=== PATIENT | female | born 1935 | race Caucasian/White ===

== ENCOUNTER 2018-11-01 08:33 | Day surgery (SDC) | payer MEDICARE, BC ==
[2018-11-01] MEDS ORDERED: fentaNYL 100 MCG/2 ML SDV IV ONE (08:34)
[2018-11-01] MEDS ORDERED: Midazolam 1 MG/ML 2 ML SDV IV ONE (08:34)
[2018-11-01] MEDS ORDERED: Lactated Ringers 1,000 ML IV PRN (08:45)
[2018-11-01] MEDS ORDERED: Lactated Ringers 1,000 ML IV SCH (08:45)
[2018-11-01] MEDS ORDERED: Sodium Chloride 0.9% 10 ML Syringe FLUSH PRN (08:45)
--- NOTE | 2018-11-02 09:11 | OR ---
DATE OF OPERATION: 11/01/2018 SURGEON: Val Boone MD PREOPERATIVE DIAGNOSIS: Visually significant cataract, left eye. POSTOPERATIVE DIAGNOSIS: Visually significant cataract, left eye. PROCEDURES PERFORMED: Phacoemulsification with intraocular lens placement, left eye. ASSISTANTS: None. ANESTHESIA: Local with sedation. COMPLICATIONS: None. BLOOD LOSS: None. IMPLANTS: Donnie [id number], 20.5 diopter lens implanted. CDE: 10.59. DESCRIPTION OF PROCEDURE: After risks and benefits were reviewed with the patient, consent was obtained in the preoperative area, and the operative eye was marked with a surgical pen. In the preoperative area, a pledget was used to dilate the pupil consisting of a mixture of phenylephrine 10%, cyclopentolate 2%, moxifloxacin 0.5%, and bupivacaine 0.75%. The patient was taken to the operating room, where a time-out was performed, and the patient was placed under monitored anesthesia care. Topical tetracaine was used for anesthesia. The operative eye was prepped and draped for ophthalmic surgery, and the microscope was brought into position and focussed. A paracentesis incision was made, followed by injection of preservative-free 1% lidocaine into the anterior chamber, followed by injection of Viscoat into the anterior chamber. A microkeratome blade was used to make a corneal limbal incision temporarily. A cystotome was used to make the beginning of the capsulorrhexis, which was carried around 360 degrees in a curvilinear fashion using Utrata forceps. A Moore cannula with BSS was used to hydrodissect and hydrodelineate the nucleus. The nucleus was removed in a divide and conquer manner using phacoemulsification. Irrigation and aspiration were used to remove the remaining cortical material. Provisc was used to inflate the capsular bag, and a pre-loaded Donnie AU00T0 20.5 diopter lens, serial number [id number] was injected into the capsular bag. A Sinskey hook was used to position and center the lens. Next, irrigation and aspiration was used to remove any remaining viscoelastic and cortical material from the anterior chamber. BSS on a cannula was used to inflate the anterior chamber and hydrate the wound. The wound was checked and found to be watertight. 1 mg of Moxifloxacin was injected into the anterior chamber. Drapes were removed and the eye was cleaned. A drop of brimonidine 0.15% and a drop of TobraDex was placed. The eye was shielded, and the patient was taken to the recovery room in stable condition. /[id number] QUINN/LEVI CC: RITESH MI PA-C MTDD
[2018-11-02 10:48] VITALS: BP 168/73; PULSE 64
== END 2018-11-01 12:30 | disposition other institution (70) ==
LOC: FB.SDS 08:33
PROVIDERS: ATTEND Ophthalmology
DX: H25.13 Age-related nuclear cataract, bilateral (principal); I10 Essential (primary) hypertension; I48.0 Paroxysmal atrial fibrillation; E78.00 Pure hypercholesterolemia, unspecified; M19.90 Unspecified osteoarthritis, unspecified site; Z79.899 Other long term (current) drug therapy; Z79.01 Long term (current) use of anticoagulants
CPT/HCPCS: 00142; 66984; J2250; J3010; J7120; V2632

== ENCOUNTER 2018-11-29 07:09 | Day surgery (SDC) | payer MEDICARE, BC ==
[2018-11-29] MEDS ORDERED: fentaNYL 100 MCG/2 ML SDV IV ONE (07:10)
[2018-11-29] MEDS ORDERED: Ondansetron 4 MG/2 ML SDV IVPUSH ONE (07:10)
[2018-11-29] MEDS ORDERED: Sodium Chloride 0.9% 10 ML Syringe IV ONE (07:10)
[2018-11-29] MEDS ORDERED: Midazolam 1 MG/ML 2 ML SDV IV ONE (07:10)
[2018-11-29] MEDS: Sodium Chloride 0.9% 10 ML Syringe FLUSH PRN (07:50)
--- NOTE | 2018-11-29 11:34 | OR ---
DATE OF OPERATION: 11/29/2018 SURGEON: Val Boone MD PREOPERATIVE DIAGNOSIS: Visually significant cataract, right eye. POSTOPERATIVE DIAGNOSIS: Visually significant cataract, right eye. PROCEDURES PERFORMED: Phacoemulsification with intraocular lens placement, right eye. ASSISTANTS: None. ANESTHESIA: Local with sedation. COMPLICATIONS: None. BLOOD LOSS: None. IMPLANTS: Donnie [id number], 21.5 diopter lens implanted. CDE: 10.94. DESCRIPTION OF PROCEDURE: After risks and benefits were reviewed with the patient, consent was obtained in the preoperative area, and the operative eye was marked with a surgical pen. In the preoperative area, a pledget was used to dilate the pupil consisting of a mixture of phenylephrine 10%, cyclopentolate 2%, moxifloxacin 0.5%, and bupivacaine 0.75%. The patient was taken to the operating room, where a time-out was performed, and the patient was placed under monitored anesthesia care. Topical tetracaine was used for anesthesia. The operative eye was prepped and draped for ophthalmic surgery, and the microscope was brought into position and focussed. A paracentesis incision was made, followed by injection of preservative-free 1% lidocaine into the anterior chamber, followed by injection of Viscoat into the anterior chamber. A microkeratome blade was used to make a corneal limbal incision temporarily. A cystotome was used to make the beginning of the capsulorrhexis, which was carried around 360 degrees in a curvilinear fashion using Utrata forceps. A Moore cannula with BSS was used to hydrodissect and hydrodelineate the nucleus. The nucleus was removed in a divide and conquer manner using phacoemulsification. Irrigation and aspiration were used to remove the remaining cortical material. Provisc was used to inflate the capsular bag, and a pre-loaded Donnie AU00T0, 21.5 diopter lens, serial number [id number] was injected into the capsular bag. A Sinskey hook was used to position and center the lens. Next, irrigation and aspiration was used to remove any remaining viscoelastic and cortical material from the anterior chamber. BSS on a cannula was used to inflate the anterior chamber and hydrate the wound. The wound was checked and found to be watertight. 1 mg of Moxifloxacin was injected into the anterior chamber. Drapes were removed and the eye was cleaned. A drop of brimonidine 0.15% and a drop of TobraDex was placed. The eye was shielded, and the patient was taken to the recovery room in stable condition. /[id number] AK/MODL CC: RITESH MI MD MTDD
[2018-11-29 15:50] VITALS: BP 135/60; PULSE 56
== END 2018-11-29 10:15 | disposition home or self-care (01) ==
LOC: FB.SDS 07:09
PROVIDERS: ATTEND Ophthalmology
DX: H25.13 Age-related nuclear cataract, bilateral (principal); I10 Essential (primary) hypertension; I48.0 Paroxysmal atrial fibrillation; E78.00 Pure hypercholesterolemia, unspecified; M19.90 Unspecified osteoarthritis, unspecified site; Z79.01 Long term (current) use of anticoagulants; Z79.899 Other long term (current) drug therapy
CPT/HCPCS: 66984; J2250; J2405; J3010; V2632

== ENCOUNTER 2019-10-05 06:29 | Emergency (ER) | payer MEDICARE, BC ==
--- NOTE | 2019-10-05 06:56 | EDM.PDOC ---
ED HPI GENERAL MEDICAL PROBLEM - General Chief Complaint: General Stated Complaint: ABDOMINAL/BACK PAIN Time Seen by Provider: 10/05/19 06:40 Source of Information: Reports: Patient History Limitations: Reports: No Limitations - History of Present Illness INITIAL COMMENTS - FREE TEXT/NARRATIVE: Patient presented to the ED because of pain which run across her right pelvis to the left side of the abdomen. She was diagnosed with shingles recently and is taking gabapentin and tramadol,however, iyt's not helping much with he pain. Right Lower Abdomen Pain Score (Numeric/FACES): 7 - Related Data Allergies Allergy/AdvReac Type Severity Reaction Status Date / Time No Known Allergies Allergy Verified 10/05/19 06:37 Home Meds: Home Meds Multivitamin [One Daily Multivitamin] 1 each PO DAILY 01/09/16 [History] Omeprazole 20 mg PO DAILY 09/05/17 [History] Oxybutynin Chloride 5 mg PO BID 09/05/17 [History] Apixaban [Eliquis] 5 mg PO BID 10/26/18 [History] Sennosides [Senokot] 8.6 mg PO DAILY 10/26/18 [History] dilTIAZem HCL [Cardizem Cd] 180 mg PO BEDTIME 10/26/18 [History] Acetaminophen [Tylenol Extra Strength] 500 mg PO TID 10/05/19 [History] Bumetanide [Bumex] 0.5 mg PO DAILY 10/05/19 [History] Gabapentin [Neurontin] 100 mg PO TID 10/05/19 [History] atorvaSTATin [Lipitor] 40 mg PO DAILY 10/05/19 [History] traMADol [Ultram] 50 mg PO TID PRN 10/05/19 [History] Past Medical History HEENT History: Reports: Cataract, Glaucoma, Impaired Vision Other HEENT History: 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 MACULAR DEGENERATION Cardiovascular History: Reports: Afib, High Cholesterol, Hypertension Gastrointestinal History: Reports: Colon Polyp, Other (See Below) Other Gastrointestinal History: dysphagia. MALIGNANT NEOPLASM OF HEPATIC FLEXURE Genitourinary History: Reports: Urinary Incontinence [employer] History: Reports: Musculoskeletal History: Reports: Arthritis, Fracture Other Musculoskeletal History: fx L ankle, fx R wrist, falls. WEAKNESS. CERVICAL STENOSIS,. CHRONIC NECK PAIN, SPONDYALISTHESIS OF CERVICAL CANAL Neurological History: Reports: TIA, Vertigo Psychiatric History: Reports: Dementia, Depression Other Psychiatric History: ALTERED MENTAL STATUS Endocrine/Metabolic History: Reports: Obesity/BMI 30+ Oncologic (Cancer) History: Reports: Colon Dermatologic History: Reports: None - Infectious Disease History Infectious Disease History: Reports: Shingles - Past Surgical History GI Surgical History: Reports: Appendectomy, Colon, Colonoscopy Neurological Surgical History: Reports: None Musculoskeletal Surgical History: Reports: None Social & Family History - Family History Family Medical History: Noncontributory - Tobacco Use Smoking Status *Q: Never Smoker - Caffeine Use Caffeine Use: Reports: None - Recreational Drug Use Recreational Drug Use: No ED ROS GENERAL - Review of Systems Review Of Systems: See Below Constitutional: Reports: No Symptoms HEENT: Reports: No Symptoms Respiratory: Reports: No Symptoms Cardiovascular: Reports: No Symptoms Endocrine: Reports: No Symptoms GI/Abdominal: Reports: No Symptoms : Reports: Hematuria Musculoskeletal: Reports: No Symptoms Skin: Reports: Rash ED EXAM, GENERAL - Physical Exam Exam: See Below Exam Limited By: No Limitations General Appearance: Alert, No Apparent Distress Nose: Normal Inspection, Normal Mucosa Throat/Mouth: Normal Inspection, Normal Lips, Normal Teeth Head: Atraumatic, Normocephalic Neck: Normal Inspection, Supple, Non-Tender, Full Range of Motion Respiratory/Chest: No Respiratory Distress, Lungs Clear, Normal Breath Sounds Cardiovascular: Normal Peripheral Pulses, Regular Rate, Rhythm, No Edema, No Gallop GI/Abdominal: Normal Bowel Sounds, Soft, Non-Tender, No Organomegaly (Female) Exam: Normal External Exam Extremities: Normal Inspection, Normal Range of Motion Skin Exam: Warm, Zoster-Like Rash Course - Vital Signs Text/Narrative:: Tramadol 100 mg po x1 Tylenol 1000 mg po x1 Last Recorded V/S: Last Vital Signs Temp 36.5 C 10/05/19 06:37 Pulse 52 L 10/05/19 07:36 Resp 16 10/05/19 07:36 BP 169/49 H 10/05/19 07:36 Pulse Ox 100 10/05/19 07:36 - Orders/Labs/Meds Meds: Medications Discontinued Medications Generic Name Dose Route Start Last Admin Trade Name Freq PRN Reason Stop Dose Admin Acetaminophen 1,000 mg 10/05/19 06:58 10/05/19 07:10 Tylenol Extra Strength PO 10/05/19 06:59 1,000 mg ONETIME ONE Administration Tramadol HCl 100 mg 10/05/19 06:58 10/05/19 07:10 Ultram PO 10/05/19 06:59 100 mg ONETIME ONE Administration Departure - Departure Time of Disposition: 06:55 Disposition: Home, Self-Care 01 Condition: Good Clinical Impression: Herpes zoster - Discharge Information Instructions: Shingles, [id number] Referrals: Ever Pro MD [Primary Care Provider] - Forms: ED Department Discharge Additional Instructions: Please read discharge instructions on herpes zoster Continue gabapentin as prescribed Increase tramadol from 50 mg to 100 mg taken with tylenol 1000 mg every 8 hours as needed for pain Sepsis Event Note (ED) - Evaluation Sepsis Screening Result: No Definite Risk
[2019-10-05] MEDS ORDERED: Acetaminophen 500 MG Tab PO ONE (06:58)
[2019-10-05] MEDS ORDERED: traMADol 50 MG Tab PO ONE (06:58)
[2019-10-05 07:37] VITALS: BP 169/49; PULSE 52
== END 2019-10-05 08:03 | disposition home or self-care (01) ==
LOC: FB.ED 06:29
DX: B02.9 Zoster without complications (principal); I48.91 Unspecified atrial fibrillation; E78.00 Pure hypercholesterolemia, unspecified; I10 Essential (primary) hypertension; F03.90 Unspecified dementia, unspecified severity, without behavioral disturbance, psychotic disturbance, mood disturbance, and anxiety; Z86.73 Personal history of transient ischemic attack (TIA), and cerebral infarction without residual deficits; E66.9 Obesity, unspecified; Z68.31 Body mass index [BMI] 31.0-31.9, adult; Z79.01 Long term (current) use of anticoagulants; Z79.899 Other long term (current) drug therapy
CPT/HCPCS: 99284; A9270; 99283

== ENCOUNTER 2020-03-06 20:15 | Inpatient (IN) | payer MEDICARE, BC ==
[2020-03-06] MEDS ORDERED: Ondansetron 4 MG Tab.DIS PO ONE (20:38)
[2020-03-06] MEDS ORDERED: Meclizine 25 MG Tab PO ONE (20:38)
--- NOTE | 2020-03-06 21:07 | EDM.PDOC ---
ED HPI GENERAL MEDICAL PROBLEM - General Chief Complaint: General Stated Complaint: FALL AT HOME Time Seen by Provider: 03/06/20 20:30 Source of Information: Reports: Patient History Limitations: Reports: No Limitations - History of Present Illness INITIAL COMMENTS - FREE TEXT/NARRATIVE: Patient presented to the ED via EMS because of a fall. [facility] staff found her on he floor. She doesn't know how she end up on the floor. She doesn't complain of any pain but has nausea w/o vomiting and dizziness. She said her dizziness is nothing new but is worse today. - Related Data Allergies Allergy/AdvReac Type Severity Reaction Status Date / Time No Known Allergies Allergy Verified 03/06/20 20:35 Home Meds: Home Meds Multivitamin [One Daily Multivitamin] 1 each PO DAILY 01/09/16 [History] Oxybutynin Chloride 5 mg PO BID 09/05/17 [History] Apixaban [Eliquis] 5 mg PO BID 10/26/18 [History] Sennosides [Senokot] 8.6 mg PO DAILY 10/26/18 [History] dilTIAZem HCL [Cardizem Cd] 180 mg PO BEDTIME 10/26/18 [History] Bumetanide [Bumex] 0.5 mg PO DAILY 10/05/19 [History] atorvaSTATin [Lipitor] 40 mg PO DAILY 10/05/19 [History] traMADol [Ultram] 50 mg PO TID PRN 10/05/19 [History] Meclizine [Antivert] 25 mg PO Q6H PRN #30 tab 03/06/20 [Rx] Omeprazole Magnesium [Prilosec Otc] 20 mg PO DAILY 03/06/20 [History] Past Medical History HEENT History: Reports: Cataract, Glaucoma, Impaired Vision Other HEENT History: 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 MACULAR DEGENERATION Cardiovascular History: Reports: Afib, High Cholesterol, Hypertension Gastrointestinal History: Reports: Colon Polyp, Other (See Below) Other Gastrointestinal History: dysphagia. 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 WEAKNESS. CERVICAL STENOSIS,. CHRONIC NECK PAIN, SPONDYALISTHESIS OF CERVICAL CANAL Neurological History: Reports: TIA, Vertigo Psychiatric History: Reports: Dementia, Depression Other Psychiatric History: ALTERED MENTAL STATUS Endocrine/Metabolic History: Reports: Obesity/BMI 30+ Oncologic (Cancer) History: Reports: Colon Dermatologic History: Reports: None - Infectious Disease History Infectious Disease History: Reports: Shingles - Past Surgical History GI Surgical History: Reports: Appendectomy, Colon, Colonoscopy Neurological Surgical History: Reports: None Musculoskeletal Surgical History: Reports: None Social & Family History - Family History Family Medical History: No Pertinent Family History - Tobacco Use Tobacco Use Status *Q: Never Tobacco User - Caffeine Use Caffeine Use: Reports: None - Recreational Drug Use Recreational Drug Use: No ED ROS GENERAL - Review of Systems Review Of Systems: See Below Constitutional: Reports: No Symptoms HEENT: Reports: No Symptoms Respiratory: Reports: No Symptoms Cardiovascular: Reports: No Symptoms Endocrine: Reports: No Symptoms GI/Abdominal: Reports: Nausea : Reports: No Symptoms Musculoskeletal: Reports: No Symptoms Skin: Reports: No Symptoms Neurological: Reports: Dizziness Psychiatric: Reports: No Symptoms ED EXAM, GENERAL - Physical Exam Exam: See Below Exam Limited By: No Limitations General Appearance: Alert, No Apparent Distress Ears: Normal External Exam, Normal Canal Nose: Normal Inspection, Normal Mucosa, No Blood Throat/Mouth: Normal Inspection, Normal Lips, Normal Teeth Head: Atraumatic, Normocephalic Neck: Normal Inspection, Supple, Non-Tender, Full Range of Motion Respiratory/Chest: No Respiratory Distress, Lungs Clear, Normal Breath Sounds Cardiovascular: Normal Peripheral Pulses, Regular Rate, Rhythm, No Edema GI/Abdominal: Normal Bowel Sounds, Soft, Non-Tender, No Organomegaly Back Exam: Normal Inspection, Full Range of Motion Extremities: Normal Inspection, Normal Range of Motion, Non-Tender Neurological: Alert, Oriented, CN II-XII Intact, Normal Cognition, Normal Gait, Normal Reflexes, No Motor/Sensory Deficits Course - Vital Signs Text/Narrative:: Labs/EKG/CXR result was discussed with patient UC-pending Zofran 4 mg ODT Meclizine 25 mg po x1 Last Recorded V/S: Last Vital Signs Temp 36.6 C 03/06/20 20:15 Pulse 88 03/06/20 20:15 Resp 18 03/06/20 20:15 BP 165/67 H 03/06/20 20:15 Pulse Ox 96 03/06/20 20:15 - Orders/Labs/Meds Orders: Active Orders 24 hr Category Date Time Status Patient Status [ADT] Routine ADT 03/06/20 21:53 Ordered Antiembolic Devices [RC] .Routine Care 03/06/20 21:53 Ordered Cardiac Monitoring [RC] INTERMITTENT Care 03/06/20 21:57 Ordered EKG Documentation Completion [RC] ASDIRECTED Care 03/06/20 20:38 Active Intake and Output [RC] QSHIFT Care 03/06/20 21:57 Ordered Oxygen Therapy [RC] PRN Care 03/06/20 21:53 Ordered Pulse Oximetry [RC] PRN Care 03/06/20 21:58 Ordered Up With Assistance [RC] ASDIRECTED Care 03/06/20 21:53 Ordered VTE/DVT Education [RC] Per Unit Routine Care 03/06/20 21:53 Ordered Vital Signs [RC] Q4H Care 03/06/20 21:53 Ordered Heart Healthy Diet [DIET] Diet 03/07/20 Breakfast Ordered Chest 1V Frontal [CR] Stat Exams 03/06/20 20:48 Taken BASIC METABOLIC PANEL,BMP [CHEM] AM Lab 03/07/20 05:11 Ordered CORONAVIRUS COVID-19 JORGE [MOLEC] Stat Lab 03/06/20 21:52 Ordered CULTURE URINE [RM] Stat Lab 03/06/20 19:58 Received Apixaban [Eliquis] Med 03/07/20 09:00 Ordered 5 mg PO BID Bumetanide [Bumex] Med 03/07/20 09:00 Ordered 0.5 mg PO DAILY Diltiazem [Cardizem CD] Med 03/07/20 21:00 Ordered 180 mg PO BEDTIME Meclizine [Antivert] Med 03/06/20 21:53 Ordered 25 mg PO Q6H PRN Multivitamin [One Daily Multivitamin] Med 03/07/20 09:00 Ordered 1 each PO DAILY Omeprazole Magnesium [Prilosec Otc] Med 03/07/20 09:00 Ordered 20 mg PO DAILY Ondansetron [Zofran] Med 03/06/20 21:53 Ordered 4 mg IVPUSH Q4H PRN Oxybutynin Med 03/07/20 09:00 Ordered 5 mg PO BID Sennosides [Senna] Med 03/07/20 09:00 Ordered 8.6 mg PO DAILY Sodium Chloride 0.9% with KCl 20 mEq @ 100 mL/Hr (1000 Med 03/06/20 22:00 Ordered mL) NS + KCl 20mEq/L [Normal Saline with 20 mEq KCl] 1,000 ml IV ASDIRECTED Sulfamethoxazole/Trimethoprim [Septra DS] Med 03/06/20 22:15 Ordered 1 tab PO BID atorvaSTATin [Lipitor] Med 03/07/20 09:00 Ordered 40 mg PO DAILY traMADol [Ultram] Med 03/06/20 22:03 Ordered 50 mg PO TID PRN Sequential Compression Device [OM.PC] Per Unit Routine Oth 03/06/20 21:58 Ordered Resuscitation Status Routine Resus Stat 03/06/20 21:53 Ordered EKG 12 Lead [EK] Routine Ther 03/06/20 20:37 Ordered Medication Orders Apixaban (Eliquis) 5 mg PO BID [facility] Atorvastatin Calcium (Lipitor) 40 mg PO DAILY [facility] Bumetanide (Bumex) 0.5 mg PO DAILY [facility] Diltiazem HCl (Cardizem Cd) 180 mg PO BEDTIME [facility] Potassium Chloride/Sodium Chloride (Normal Saline With 20 Meq Kcl) 1,000 mls @ 100 mls/hr IV ASDIRECTED [facility] Meclizine HCl (Antivert) 25 mg PO Q6H PRN PRN Reason: vertigo Non-Formulary Medication (Multivitamin [One Daily Multivitamin]) 1 each PO DAILY [facility] Non-Formulary Medication (Omeprazole Magnesium [Prilosec Otc]) 20 mg PO DAILY [facility] Ondansetron HCl (Zofran) 4 mg IVPUSH Q4H PRN PRN Reason: Nausea/Vomiting Oxybutynin Chloride (Oxybutynin) 5 mg PO BID [facility] Senna (Senna) 8.6 mg PO DAILY [facility] Tramadol HCl (Ultram) 50 mg PO TID PRN PRN Reason: Pain Trimethoprim/Sulfamethoxazole (Septra Ds) 1 tab PO BID [facility] Labs: Laboratory Tests 03/06/20 03/06/20 03/06/20 Range/Units 19:58 20:55 20:55 WBC 8.2 (3.0-10.3) x10-3/uL RBC 4.33 (3.60-5.20) x10(6)uL Hgb 13.3 (11.4-15.5) g/dL Hct 40.1 (34.2-48.2) % MCV 92.5 (76.7-100.5) fL MCH 30.7 (23.9-33.9) pg MCHC 33.2 (31.9-34.8) g/dL RDW 12.6 (12.3-16.5) % Plt Count 177 (151-488) x10(3)uL MPV 8.6 (7.1-12.4) fL Neut % (Auto) 81.8 H (30.8-76.2) % Lymph % (Auto) 9.4 L (18.4-52.1) % [place] % (Auto) 8.3 (4.4-15.7) % Eos % (Auto) 0.4 L (0.6-8.1) % Baso % (Auto) 0.1 L (0.2-1.5) % Neut # (Auto) 6.7 H (1.5-6.3) x10-3/uL Lymph # (Auto) 0.8 L (1.0-4.4) x10-3/uL [place] # (Auto) 0.7 (0.3-1.0) x10-3/uL Eos # (Auto) 0.0 (0.0-0.8) x10-3/uL Baso # (Auto) 0.0 (0.0-0.1) x10-3/uL Sodium 142 (135-145) mmol/L Potassium 3.3 L (3.5-5.3) mmol/L Chloride 101 (100-110) mmol/L Carbon Dioxide 28 (21-32) mmol/L BUN 15 (7-18) mg/dL Creatinine 1.2 H (0.55-1.02) mg/dL Est Cr Clr Drug Dosing 27.60 mL/min Estimated GFR (MDRD) 43 L (>60) BUN/Creatinine Ratio 12.5 (9-20) Glucose 150 H (80-116) mg/dL Calcium 9.4 (8.6-10.2) mg/dL Total Bilirubin 0.4 (0.1-1.3) mg/dL AST 24 (5-25) IU/L ALT 25 (12-36) U/L Alkaline Phosphatase 93 (56-112) IU/L Creatine Kinase (60-160) IU/L Troponin I (4.0-60.3) pg/mL Total Protein 6.8 (6.0-8.0) g/dL Albumin 3.8 (3.2-4.6) g/dL Globulin 3.0 g/dL Albumin/Globulin Ratio 1.3 Urine Color Yellow (YELLOW) Urine Appearance Clear (CLEAR) Urine pH 5.0 (5.0-6.5) Ur Specific [place] 1.020 (1.010-1.025) Urine Protein Negative (NEGATIVE) mg/dL Urine Glucose (UA) Normal (NORMAL) mg/dL Urine Ketones Negative (NEGATIVE) mg/dL Urine Occult Blood Negative (NEGATIVE) Urine Nitrite Negative (NEGATIVE) Urine Bilirubin Negative (NEGATIVE) Urine Urobilinogen Normal (NEGATIVE) mg/dL Ur Leukocyte Esterase Small H (NEGATIVE) Urine RBC 0-5 (0-5) Urine WBC 0-5 (0-5) Ur Squamous Epith Cells Occasional (NS,R,O) Urine Bacteria Few H (NS) 03/06/20 03/06/20 Range/Units 20:55 20:55 WBC (3.0-10.3) x10-3/uL RBC (3.60-5.20) x10(6)uL Hgb (11.4-15.5) g/dL Hct (34.2-48.2) % MCV (76.7-100.5) fL MCH (23.9-33.9) pg MCHC (31.9-34.8) g/dL RDW (12.3-16.5) % Plt Count (151-488) x10(3)uL MPV (7.1-12.4) fL Neut % (Auto) (30.8-76.2) % Lymph % (Auto) (18.4-52.1) % [place] % (Auto) (4.4-15.7) % Eos % (Auto) (0.6-8.1) % Baso % (Auto) (0.2-1.5) % Neut # (Auto) (1.5-6.3) x10-3/uL Lymph # (Auto) (1.0-4.4) x10-3/uL [place] # (Auto) (0.3-1.0) x10-3/uL Eos # (Auto) (0.0-0.8) x10-3/uL Baso # (Auto) (0.0-0.1) x10-3/uL Sodium (135-145) mmol/L Potassium (3.5-5.3) mmol/L Chloride (100-110) mmol/L Carbon Dioxide (21-32) mmol/L BUN (7-18) mg/dL Creatinine (0.55-1.02) mg/dL Est Cr Clr Drug Dosing mL/min Estimated GFR (MDRD) (>60) BUN/Creatinine Ratio (9-20) Glucose (80-116) mg/dL Calcium (8.6-10.2) mg/dL Total Bilirubin (0.1-1.3) mg/dL AST (5-25) IU/L ALT (12-36) U/L Alkaline Phosphatase (56-112) IU/L Creatine Kinase 78 (60-160) IU/L Troponin I 11.7 (4.0-60.3) pg/mL Total Protein (6.0-8.0) g/dL Albumin (3.2-4.6) g/dL Globulin g/dL Albumin/Globulin Ratio Urine Color (YELLOW) Urine Appearance (CLEAR) Urine pH (5.0-6.5) Ur Specific [place] (1.010-1.025) Urine Protein (NEGATIVE) mg/dL Urine Glucose (UA) (NORMAL) mg/dL Urine Ketones (NEGATIVE) mg/dL Urine Occult Blood (NEGATIVE) Urine Nitrite (NEGATIVE) Urine Bilirubin (NEGATIVE) Urine Urobilinogen (NEGATIVE) mg/dL Ur Leukocyte Esterase (NEGATIVE) Urine RBC (0-5) Urine WBC (0-5) Ur Squamous Epith Cells (NS,R,O) Urine Bacteria (NS) Meds: Medications Generic Name Dose Route Start Last Admin Trade Name Freq PRN Reason Stop Dose Admin Apixaban 5 mg 03/07/20 09:00 Eliquis PO BID [facility] Atorvastatin Calcium 40 mg 03/07/20 09:00 Lipitor PO DAILY [facility] Bumetanide 0.5 mg 03/07/20 09:00 Bumex PO DAILY [facility] Diltiazem HCl 180 mg 03/07/20 21:00 Cardizem Cd PO BEDTIME [facility] Potassium Chloride/Sodium Chloride 1,000 mls @ 100 mls/hr 03/06/20 22:00 Normal Saline With 20 Meq Kcl IV ASDIRECTED [facility] Meclizine HCl 25 mg 03/06/20 21:53 Antivert PO Q6H PRN vertigo Non-Formulary Medication 1 each 03/07/20 09:00 Multivitamin [One Daily Multivitamin] PO DAILY [facility] Non-Formulary Medication 20 mg 03/07/20 09:00 Omeprazole Magnesium [Prilosec Otc] PO DAILY [facility] Ondansetron HCl 4 mg 03/06/20 21:53 Zofran IVPUSH Q4H PRN Nausea/Vomiting Oxybutynin Chloride 5 mg 03/07/20 09:00 Oxybutynin PO BID [facility] Senna 8.6 mg 03/07/20 09:00 Senna PO DAILY [facility] Tramadol HCl 50 mg 03/06/20 22:03 Ultram PO TID PRN Pain Trimethoprim/Sulfamethoxazole 1 tab 03/06/20 22:15 Septra Ds PO BID [facility] Discontinued Medications Generic Name Dose Route Start Last Admin Trade Name Freq PRN Reason Stop Dose Admin Meclizine HCl 25 mg 03/06/20 20:38 03/06/20 20:51 Antivert PO 03/06/20 20:39 25 mg ONETIME ONE Administration Ondansetron HCl 4 mg 03/06/20 20:38 03/06/20 20:43 Zofran Odt PO 03/06/20 20:39 4 mg ONETIME ONE Administration Departure - Departure Time of Disposition: 21:45 Disposition: Refer to Observation Condition: Good Clinical Impression: UTI (urinary tract infection), Chronic vertigo, Hypokalemia - Discharge Information Prescriptions: Meclizine [Antivert] 25 mg PO Q6H PRN #30 tab PRN Reason: vertigo Referrals: Ever Pro MD [Primary Care Provider] - Additional Instructions: Please read discharge instructions on UTI and chronic vertigo Increase oral fluids Meclizine 25 mg every 6 hours as needed for vertigo Bactrim DS twice daily for 3 days Follow up as needed Sepsis Event Note (ED) - Evaluation Sepsis Screening Result: No Definite Risk - Focused Exam Vital Signs: Vital Signs Temp Pulse Resp BP Pulse Ox 03/06/20 20:15 36.6 C 88 18 165/67 H 96 - My Orders Last 24 Hours: My Active Orders 03/06/20 19:58 CULTURE URINE [RM] Stat 03/06/20 20:37 EKG 12 Lead [EK] Routine 03/06/20 20:38 EKG Documentation Completion [RC] ASDIRECTED 03/06/20 20:48 Chest 1V Frontal [CR] Stat 03/06/20 21:52 CORONAVIRUS COVID-19 [facility]OR[facility] [MOLEC] Stat 03/06/20 21:53 Patient Status [ADT] Routine Antiembolic Devices [RC] .Routine Oxygen Therapy [RC] PRN Up With Assistance [RC] ASDIRECTED VTE/DVT Education [RC] Per Unit Routine Vital Signs [RC] Q4H Meclizine [Antivert] 25 mg PO Q6H PRN Ondansetron [Zofran] 4 mg IVPUSH Q4H PRN Resuscitation Status Routine 03/06/20 21:57 Cardiac Monitoring [RC] INTERMITTENT Intake and Output [RC] QSHIFT 03/06/20 21:58 Pulse Oximetry [RC] PRN Sequential Compression Device [OM.PC] Per Unit Routine 03/06/20 22:00 Sodium Chloride 0.9% with KCl 20 mEq @ 100 mL/Hr (1000 mL) NS + KCl 20mEq/L [Normal Saline with 20 mEq KCl] 1,000 ml IV ASDIRECTED 03/06/20 22:03 traMADol [Ultram] 50 mg PO TID PRN 03/06/20 22:15 Sulfamethoxazole/Trimethoprim [Septra DS] 1 tab PO BID 03/07/20 05:11 BASIC METABOLIC PANEL,BMP [CHEM] AM 03/07/20 Breakfast Heart Healthy Diet [DIET] 03/07/20 09:00 Apixaban [Eliquis] 5 mg PO BID Bumetanide [Bumex] 0.5 mg PO DAILY Multivitamin [One Daily Multivitamin] 1 each PO DAILY Omeprazole Magnesium [Prilosec Otc] 20 mg PO DAILY Oxybutynin 5 mg PO BID Sennosides [Senna] 8.6 mg PO DAILY atorvaSTATin [Lipitor] 40 mg PO DAILY 03/07/20 21:00 Diltiazem [Cardizem CD] 180 mg PO BEDTIME - Assessment/Plan Last 24 Hours: My Active Orders 03/06/20 19:58 CULTURE URINE [RM] Stat 03/06/20 20:37 EKG 12 Lead [EK] Routine 03/06/20 20:38 EKG Documentation Completion [RC] ASDIRECTED 03/06/20 20:48 Chest 1V Frontal [CR] Stat 03/06/20 21:52 CORONAVIRUS COVID-19 JORGE [MOLEC] Stat 03/06/20 21:53 Patient Status [ADT] Routine Antiembolic Devices [RC] .Routine Oxygen Therapy [RC] PRN Up With Assistance [RC] ASDIRECTED VTE/DVT Education [RC] Per Unit Routine Vital Signs [RC] Q4H Meclizine [Antivert] 25 mg PO Q6H PRN Ondansetron [Zofran] 4 mg IVPUSH Q4H PRN Resuscitation Status Routine 03/06/20 21:57 Cardiac Monitoring [RC] INTERMITTENT Intake and Output [RC] QSHIFT 03/06/20 21:58 Pulse Oximetry [RC] PRN Sequential Compression Device [OM.PC] Per Unit Routine 03/06/20 22:00 Sodium Chloride 0.9% with KCl 20 mEq @ 100 mL/Hr (1000 mL) NS + KCl 20mEq/L [Normal Saline with 20 mEq KCl] 1,000 ml IV ASDIRECTED 03/06/20 22:03 traMADol [Ultram] 50 mg PO TID PRN 03/06/20 22:15 Sulfamethoxazole/Trimethoprim [Septra DS] 1 tab PO BID 03/07/20 05:11 BASIC METABOLIC PANEL,BMP [CHEM] AM 03/07/20 Breakfast Heart Healthy Diet [DIET] 03/07/20 09:00 Apixaban [Eliquis] 5 mg PO BID Bumetanide [Bumex] 0.5 mg PO DAILY Multivitamin [One Daily Multivitamin] 1 each PO DAILY Omeprazole Magnesium [Prilosec Otc] 20 mg PO DAILY Oxybutynin 5 mg PO BID Sennosides [Senna] 8.6 mg PO DAILY atorvaSTATin [Lipitor] 40 mg PO DAILY 03/07/20 21:00 Diltiazem [Cardizem CD] 180 mg PO BEDTIME
[2020-03-06] MEDS ORDERED: Ondansetron 4 MG/2 ML SDV IVPUSH PRN (21:53)
[2020-03-06] MEDS ORDERED: Meclizine 25 MG Tab PO PRN (21:53)
[2020-03-06] MEDS ORDERED: NS + KCl 20mEq/L 1,000 ML IV SCH (22:00)
[2020-03-06] MEDS ORDERED: traMADol 50 MG Tab PO PRN (22:03)
[2020-03-06] MEDS ORDERED: Sulfamethoxazole/Trimethoprim 800-160 MG Tab PO SCH (23:00)
--- NOTE | 2020-03-07 08:09 | PCM.HP.2 ---
H&P History of Present Illness - General Date of Service: 03/07/20 Admit Problem/Dx: Admission Diagnosis/Problem Admission Diagnosis/Problem UTI (urinary tract infection) due to urinary indwelling catheter Source of Information: Patient, EMS, Old Records, RN History Limitations: Reports: No Limitations - History of Present Illness Initial Comments - Free Text/Narative: Anisha is an 84 yo who was found on the floor at [facility]. Does not remember how she fell,but she is extremely weak,dizzy and nauseous.Her dizziness(spinning) is worse in the mornings,and has been for years. She further complains of joint pain in the ankles and knees.She does not feel that her legs can support her. - Related Data Allergies/Adverse Reactions: Allergies Allergy/AdvReac Type Severity Reaction Status Date / Time No Known Allergies Allergy Verified 03/06/20 20:35 Home Medications: Home Meds Multivitamin [One Daily Multivitamin] 1 each PO DAILY 01/09/16 [History] Oxybutynin Chloride 5 mg PO BID 09/05/17 [History] Apixaban [Eliquis] 5 mg PO BID 10/26/18 [History] Sennosides [Senokot] 8.6 mg PO DAILY 10/26/18 [History] dilTIAZem HCL [Cardizem Cd] 180 mg PO BEDTIME 10/26/18 [History] Bumetanide [Bumex] 0.5 mg PO DAILY 10/05/19 [History] atorvaSTATin [Lipitor] 40 mg PO DAILY 10/05/19 [History] traMADol [Ultram] 50 mg PO TID PRN 10/05/19 [History] Meclizine [Antivert] 25 mg PO Q6H PRN #30 tab 03/06/20 [Rx] Omeprazole Magnesium [Prilosec Otc] 20 mg PO DAILY 03/06/20 [History] Past Medical History HEENT History: Reports: Cataract, Glaucoma, Impaired Vision Other HEENT History: 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 MACULAR DEGENERATION Cardiovascular History: Reports: Afib, High Cholesterol, Hypertension Gastrointestinal History: Reports: Colon Polyp, Other (See Below) Other Gastrointestinal History: dysphagia. MALIGNANT NEOPLASM OF HEPATIC FLEXURE Genitourinary History: Reports: Urinary Incontinence [employer] ADMINISTRATOR History: Reports: Musculoskeletal History: Reports: Arthritis, Fracture Other Musculoskeletal History: fx L ankle, fx R wrist, falls. WEAKNESS. CERVICAL STENOSIS,. CHRONIC NECK PAIN, SPONDYALISTHESIS OF CERVICAL CANAL Neurological History: Reports: TIA, Vertigo Psychiatric History: Reports: Dementia, Depression Other Psychiatric History: ALTERED MENTAL STATUS Endocrine/Metabolic History: Reports: Obesity/BMI 30+ Oncologic (Cancer) History: Reports: Colon Dermatologic History: Reports: None - Infectious Disease History Infectious Disease History: Reports: Shingles - Past Surgical History GI Surgical History: Reports: Appendectomy, Colon, Colonoscopy Neurological Surgical History: Reports: None Musculoskeletal Surgical History: Reports: None Social & Family History - Family History Family Medical History: No Pertinent Family History - Tobacco Use Tobacco Use Status *Q: Never Tobacco User Second Hand Smoke Exposure: No - Caffeine Use Caffeine Use: Reports: None - Recreational Drug Use Recreational Drug Use: No H&P Review of Systems - Review of Systems: Review Of Systems: Comprehensive ROS is negative, except as noted in HPI. Exam - Exam Exam: See Below - Vital Signs Vital Signs: Last Vital Signs Temp 97.8 F 03/07/20 04:00 Pulse 85 03/07/20 04:00 Resp 18 03/07/20 04:00 BP 158/69 H 03/07/20 04:00 Pulse Ox 93 L 03/07/20 04:00 Weight: 78.188 kg - Exam General: Alert HEENT: PERRLA Neck: Supple Lungs: Clear to Auscultation Cardiovascular: Regular Rate GI/Abdominal Exam: Normal Bowel Sounds Back Exam: Normal Inspection Extremities: Normal Inspection Skin: Warm Neurological: Cranial Nerves Intact, Normal Speech, Abnormal Gait. No: Normal Gait Neuro Extensive - Mental Status: Oriented x3 Neuro Extensive - Motor, Sensory, Reflexes: No: Ataxia, Dysarthria Psychiatric: Alert, Depressed - Patient Data Lab Results Last 24 hrs: Laboratory Results - last 24 hr 03/06/20 03/06/20 03/06/20 Range/Units 19:58 20:55 20:55 WBC 8.2 (3.0-10.3) x10-3/uL RBC 4.33 (3.60-5.20) x10(6)uL Hgb 13.3 (11.4-15.5) g/dL Hct 40.1 (34.2-48.2) % MCV 92.5 (76.7-100.5) fL MCH 30.7 (23.9-33.9) pg MCHC 33.2 (31.9-34.8) g/dL RDW 12.6 (12.3-16.5) % Plt Count 177 (151-488) x10(3)uL MPV 8.6 (7.1-12.4) fL Neut % (Auto) 81.8 H (30.8-76.2) % Lymph % (Auto) 9.4 L (18.4-52.1) % [place] % (Auto) 8.3 (4.4-15.7) % Eos % (Auto) 0.4 L (0.6-8.1) % Baso % (Auto) 0.1 L (0.2-1.5) % Neut # (Auto) 6.7 H (1.5-6.3) x10-3/uL Lymph # (Auto) 0.8 L (1.0-4.4) x10-3/uL [place] # (Auto) 0.7 (0.3-1.0) x10-3/uL Eos # (Auto) 0.0 (0.0-0.8) x10-3/uL Baso # (Auto) 0.0 (0.0-0.1) x10-3/uL Sodium 142 (135-145) mmol/L Potassium 3.3 L (3.5-5.3) mmol/L Chloride 101 (100-110) mmol/L Carbon Dioxide 28 (21-32) mmol/L BUN 15 (7-18) mg/dL Creatinine 1.2 H (0.55-1.02) mg/dL Est Cr Clr Drug Dosing 27.60 mL/min Estimated GFR (MDRD) 43 L (>60) BUN/Creatinine Ratio 12.5 (9-20) Glucose 150 H (80-116) mg/dL Calcium 9.4 (8.6-10.2) mg/dL Total Bilirubin 0.4 (0.1-1.3) mg/dL AST 24 (5-25) IU/L ALT 25 (12-36) U/L Alkaline Phosphatase 93 (56-112) IU/L Creatine Kinase (60-160) IU/L Troponin I (4.0-60.3) pg/mL Total Protein 6.8 (6.0-8.0) g/dL Albumin 3.8 (3.2-4.6) g/dL Globulin 3.0 g/dL Albumin/Globulin Ratio 1.3 Urine Color Yellow (YELLOW) Urine Appearance Clear (CLEAR) Urine pH 5.0 (5.0-6.5) Ur Specific [place] 1.020 (1.010-1.025) Urine Protein Negative (NEGATIVE) mg/dL Urine Glucose (UA) Normal (NORMAL) mg/dL Urine Ketones Negative (NEGATIVE) mg/dL Urine Occult Blood Negative (NEGATIVE) Urine Nitrite Negative (NEGATIVE) Urine Bilirubin Negative (NEGATIVE) Urine Urobilinogen Normal (NEGATIVE) mg/dL Ur Leukocyte Esterase Small H (NEGATIVE) Urine RBC 0-5 (0-5) Urine WBC 0-5 (0-5) Ur Squamous Epith Cells Occasional (NS,R,O) Urine Bacteria Few H (NS) SARS-CoV-2 RNA (JORGE) (NEGATIVE) 03/06/20 03/06/20 03/06/20 Range/Units 20:55 20:55 22:00 WBC (3.0-10.3) x10-3/uL RBC (3.60-5.20) x10(6)uL Hgb (11.4-15.5) g/dL Hct (34.2-48.2) % MCV (76.7-100.5) fL MCH (23.9-33.9) pg MCHC (31.9-34.8) g/dL RDW (12.3-16.5) % Plt Count (151-488) x10(3)uL MPV (7.1-12.4) fL Neut % (Auto) (30.8-76.2) % Lymph % (Auto) (18.4-52.1) % [place] % (Auto) (4.4-15.7) % Eos % (Auto) (0.6-8.1) % Baso % (Auto) (0.2-1.5) % Neut # (Auto) (1.5-6.3) x10-3/uL Lymph # (Auto) (1.0-4.4) x10-3/uL [place] # (Auto) (0.3-1.0) x10-3/uL Eos # (Auto) (0.0-0.8) x10-3/uL Baso # (Auto) (0.0-0.1) x10-3/uL Sodium (135-145) mmol/L Potassium (3.5-5.3) mmol/L Chloride (100-110) mmol/L Carbon Dioxide (21-32) mmol/L BUN (7-18) mg/dL Creatinine (0.55-1.02) mg/dL Est Cr Clr Drug Dosing mL/min Estimated GFR (MDRD) (>60) BUN/Creatinine Ratio (9-20) Glucose (80-116) mg/dL Calcium (8.6-10.2) mg/dL Total Bilirubin (0.1-1.3) mg/dL AST (5-25) IU/L ALT (12-36) U/L Alkaline Phosphatase (56-112) IU/L Creatine Kinase 78 (60-160) IU/L Troponin I 11.7 (4.0-60.3) pg/mL Total Protein (6.0-8.0) g/dL Albumin (3.2-4.6) g/dL Globulin g/dL Albumin/Globulin Ratio Urine Color (YELLOW) Urine Appearance (CLEAR) Urine pH (5.0-6.5) Ur Specific [place] (1.010-1.025) Urine Protein (NEGATIVE) mg/dL Urine Glucose (UA) (NORMAL) mg/dL Urine Ketones (NEGATIVE) mg/dL Urine Occult Blood (NEGATIVE) Urine Nitrite (NEGATIVE) Urine Bilirubin (NEGATIVE) Urine Urobilinogen (NEGATIVE) mg/dL Ur Leukocyte Esterase (NEGATIVE) Urine RBC (0-5) Urine WBC (0-5) Ur Squamous Epith Cells (NS,R,O) Urine Bacteria (NS) SARS-CoV-2 RNA (JORGE) Negative (NEGATIVE) 03/07/20 Range/Units 06:30 WBC (3.0-10.3) x10-3/uL RBC (3.60-5.20) x10(6)uL Hgb (11.4-15.5) g/dL Hct (34.2-48.2) % MCV (76.7-100.5) fL MCH (23.9-33.9) pg MCHC (31.9-34.8) g/dL RDW (12.3-16.5) % Plt Count (151-488) x10(3)uL MPV (7.1-12.4) fL Neut % (Auto) (30.8-76.2) % Lymph % (Auto) (18.4-52.1) % Benzie % (Auto) (4.4-15.7) % Eos % (Auto) (0.6-8.1) % Baso % (Auto) (0.2-1.5) % Neut # (Auto) (1.5-6.3) x10-3/uL Lymph # (Auto) (1.0-4.4) x10-3/uL [place] # (Auto) (0.3-1.0) x10-3/uL Eos # (Auto) (0.0-0.8) x10-3/uL Baso # (Auto) (0.0-0.1) x10-3/uL Sodium 146 H (135-145) mmol/L Potassium 3.8 (3.5-5.3) mmol/L Chloride 109 D (100-110) mmol/L Carbon Dioxide 29 (21-32) mmol/L BUN 13 (7-18) mg/dL Creatinine 1.0 (0.55-1.02) mg/dL Est Cr Clr Drug Dosing 33.12 mL/min Estimated GFR (MDRD) 53 L (>60) BUN/Creatinine Ratio 13.0 (9-20) Glucose 85 (80-116) mg/dL Calcium 8.8 (8.6-10.2) mg/dL Total Bilirubin (0.1-1.3) mg/dL AST (5-25) IU/L ALT (12-36) U/L Alkaline Phosphatase (56-112) IU/L Creatine Kinase (60-160) IU/L Troponin I (4.0-60.3) pg/mL Total Protein (6.0-8.0) g/dL Albumin (3.2-4.6) g/dL Globulin g/dL Albumin/Globulin Ratio Urine Color (YELLOW) Urine Appearance (CLEAR) Urine pH (5.0-6.5) Ur Specific [place] (1.010-1.025) Urine Protein (NEGATIVE) mg/dL Urine Glucose (UA) (NORMAL) mg/dL Urine Ketones (NEGATIVE) mg/dL Urine Occult Blood (NEGATIVE) Urine Nitrite (NEGATIVE) Urine Bilirubin (NEGATIVE) Urine Urobilinogen (NEGATIVE) mg/dL Ur Leukocyte Esterase (NEGATIVE) Urine RBC (0-5) Urine WBC (0-5) Ur Squamous Epith Cells (NS,R,O) Urine Bacteria (NS) SARS-CoV-2 RNA (JORGE) (NEGATIVE) Result Diagrams: 03/06/20 20:55 03/07/20 06:30 #1 Interpretation EKG Date: 03/06/20 Rhythm: NSR [place]: Normal Sepsis Event Note - Evaluation Sepsis Screening Result: No Definite Risk - Focused Exam Vital Signs: Vital Signs Temp Pulse Resp BP Pulse Ox 03/07/20 04:00 97.8 F 85 18 158/69 H 93 L 03/06/20 23:15 97.4 F 16 97 03/06/20 22:45 23 H 167/60 H 94 L 03/06/20 21:35 23 H 166/61 H 95 03/06/20 21:00 25 H 166/64 H 93 L 03/06/20 20:45 23 H 166/61 H 96 03/06/20 20:30 22 H 167/73 H 95 03/06/20 20:15 97.9 F 88 18 165/67 H 96 - Problem List (1) Hypernatremia SNOMED Code(s): 692201316 ICD Code: E87.0 - HYPEROSMOLALITY AND HYPERNATREMIA Status: Acute Current Visit: Yes (2) Chronic vertigo SNOMED Code(s): 47784928203119 ICD Code: R42 - DIZZINESS AND GIDDINESS Status: Acute Current Visit: No (3) Weakness SNOMED Code(s): 96088799 ICD Code: R53.1 - WEAKNESS Status: Acute Current Visit: No (4) Fall in elderly patient SNOMED Code(s): 892560581 ICD Code: R29.6 - REPEATED FALLS Status: Chronic Priority: High Current Visit: No (5) HTN (hypertension) SNOMED Code(s): 17972878 ICD Code: I10 - ESSENTIAL (PRIMARY) HYPERTENSION Status: Chronic Priority: Medium Current Visit: No Qualifiers: Hypertension type: essential hypertension Qualified Code(s): I10 - Essential (primary) hypertension (6) Afib SNOMED Code(s): 92107455 ICD Code: I48.91 - UNSPECIFIED ATRIAL FIBRILLATION Status: Acute Current Visit: Yes Qualifiers: Atrial fibrillation type: paroxysmal Qualified Code(s): I48.0 - Paroxysmal atrial fibrillation Problem List Initiated/Reviewed/Updated: Yes Orders Last 24hrs: Active Orders 24 hr Category Date Time Status Patient Status [ADT] Routine ADT 03/06/20 21:53 Active Antiembolic Devices [RC] .Routine Care 03/06/20 21:53 Active Cardiac Monitoring [RC] 08,16,00 Care 03/06/20 21:57 Active Intake and Output [RC] 06,14,22 Care 03/06/20 21:57 Active Oxygen Therapy [RC] PRN Care 03/06/20 21:53 Active Pulse Oximetry [RC] PRN Care 03/06/20 21:58 Active Up With Assistance [RC] ASDIRECTED Care 03/06/20 21:53 Active VTE/DVT Education [RC] Per Unit Routine Care 03/06/20 21:53 Active Vital Signs [RC] 08,12,16,20,00,04 Care 03/06/20 21:53 Active OT Evaluation and Treatment [CONS] Routine Cons 03/07/20 08:05 Ordered PT Evaluation and Treatment [CONS] Routine Cons 03/07/20 08:05 Ordered Heart Healthy Diet [DIET] Diet 03/07/20 Breakfast Active Chest 1V Frontal [CR] Stat Exams 03/06/20 20:48 Taken BASIC METABOLIC PANEL,BMP [CHEM] AM Lab 03/08/20 05:11 Ordered CBC WITH AUTO DIFF [HEME] AM Lab 03/08/20 05:11 Ordered CULTURE URINE [RM] Stat Lab 03/06/20 19:58 Received Apixaban [Eliquis] Med 03/07/20 09:00 Pending 5 mg PO BID Bumetanide [Bumex] Med 03/07/20 09:00 Pending 0.5 mg PO DAILY Diltiazem [Cardizem CD] Med 03/07/20 21:00 Pending 180 mg PO BEDTIME Meclizine [Antivert] Med 03/06/20 21:53 Active 25 mg PO Q6H PRN Multivitamin [One Daily Multivitamin] Med 03/07/20 09:00 Pending 1 each PO DAILY NS + KCl 20mEq/L [Normal Saline with 20 mEq KCl] 1,000 Med 03/06/20 22:00 Active ml IV ASDIRECTED Omeprazole Magnesium [Prilosec Otc] Med 03/07/20 09:00 Pending 20 mg PO DAILY Ondansetron [Zofran] Med 03/06/20 21:53 Active 4 mg IVPUSH Q4H PRN Oxybutynin Med 03/07/20 09:00 Pending 5 mg PO BID Sennosides [Senna] Med 03/07/20 09:00 Pending 8.6 mg PO DAILY Sulfamethoxazole/Trimethoprim [Septra DS] Med 03/06/20 23:00 Active 1 tab PO BID atorvaSTATin [Lipitor] Med 03/07/20 09:00 Pending 40 mg PO DAILY traMADol [Ultram] Med 03/06/20 22:03 Active 50 mg PO TID PRN Sequential Compression Device [OM.PC] Per Unit Routine Oth 03/06/20 21:58 Ordered Resuscitation Status Routine Resus Stat 03/06/20 21:53 Ordered EKG 12 Lead [EK] Routine Ther 03/06/20 20:37 Ordered Medication Orders Apixaban (Eliquis) 5 mg PO BID [facility] Atorvastatin Calcium (Lipitor) 40 mg PO DAILY [facility] Bumetanide (Bumex) 0.5 mg PO DAILY [facility] Diltiazem HCl (Cardizem Cd) 180 mg PO BEDTIME [facility] Potassium Chloride/Sodium Chloride (Normal Saline With 20 Meq Kcl) 1,000 mls @ 100 mls/hr IV ASDIRECTED [facility] Last Admin: 03/06/20 23:21 Dose: 100 mls/hr Documented by: AUDREY Meclizine HCl (Antivert) 25 mg PO Q6H PRN PRN Reason: vertigo Non-Formulary Medication (Multivitamin [One Daily Multivitamin]) 1 each PO DAILY [facility] Non-Formulary Medication (Omeprazole Magnesium [Prilosec Otc]) 20 mg PO DAILY [facility] Ondansetron HCl (Zofran) 4 mg IVPUSH Q4H PRN PRN Reason: Nausea/Vomiting Oxybutynin Chloride (Oxybutynin) 5 mg PO BID [facility] Senna (Senna) 8.6 mg PO DAILY [facility] Tramadol HCl (Ultram) 50 mg PO TID PRN PRN Reason: Pain Trimethoprim/Sulfamethoxazole (Septra Ds) 1 tab PO BID [facility] Last Admin: 03/06/20 23:20 Dose: 1 tab Documented by: AUDREY Assessment/Plan Comment:: Encourage oral fluids.PT/OT consult. DC IVF,oral antibiotics.Resume home meds. DC Tele
--- NOTE | 2020-03-07 10:54 | CR ---
INDICATION: Hypoxemia. CHEST ONE VIEW: AP upright portable view of the chest 03/06/20 was compared with 01/11/16. Evidence of exogenous obesity is noted. The heart appears enlarged but is emphasized by AP positioning. The aorta is tortuous and calcified in the arch area. Overlying EKG leads are noted. Pulmonary markings appear similar to the previous examination, without a definite active infiltrate or effusion. It is difficult to entirely exclude minimal patchy bronchopneumonia at the lung base on the left due to somewhat heavy markings emphasized by relatively poor inspiration. IMPRESSION: 1. No definite acute process but difficult to exclude minimal patchy bronchopneumonia at the left lung base due to relatively poor inspiration - PA and lateral views of the chest with full inspiration may be helpful when clinically possible. 2. ASHD. MTDD
[2020-03-07] MEDS: Oxybutynin 5 MG Tab PO SCH ×2 (11:29→20:05)
[2020-03-07] MEDS: Acetaminophen 500 MG Tab PO SCH ×2 (11:29→20:04)
[2020-03-07] MEDS: Apixaban 5 MG Tab PO SCH ×2 (11:29→20:05)
[2020-03-07] MEDS: Omeprazole 20 MG *PTOM PO SCH (11:29)
[2020-03-07] MEDS: Sennosides 8.6 MG Tab PO SCH (11:29)
[2020-03-07] MEDS: BUMETANIDE 0.5 MG PO SCH (11:29)
[2020-03-07] MEDS: MULTIVITAMIN PO SCH (11:29)
--- NOTE | 2020-03-07 12:12 | CT ---
INDICATION: Altered mental status, dizziness. CT HEAD WITHOUT CONTRAST: Spiral 3.75 mm axial sections were obtained through the brain without contrast with sagittal, coronal and axial reconstructions 03/07/20 and compared with 07/02/19. Total exam DLP was 1219.22 mGy-cm. The mastoid air cells and paranasal sinuses appear well aerated. The orbits appear to be grossly intact. The cranium appears to be intact. Mild degenerative changes are noted at the odontoatlantian joint. No shift of midline structures was noted. The ventricles are moderately prominent compatible with central atrophy of moderate degree. Low density abnormality in the basal ganglia on the right suggests a lacunar infarct and also in the insular areas bilaterally similar appearance changes are noted. Areas of decreased density scattered throughout the white matter are noted similar to the previous examination compatible with microvascular disease type changes likely on a chronic basis, although focal areas of evolving change are difficult to exclude. No definite acute intracranial abnormality was identified - no bleeding site or hematoma or finding to strongly suggest an acute thrombotic CVA could be identified. Calcifications are noted in the internal carotid arteries and left vertebral artery. IMPRESSION: 1. No definite acute intracranial abnormality, although in areas of white matter disease - areas of decreased density scattered throughout the white matter - it is difficult to exclude areas of evolving microvascular disease. 2. There are some lacunar infarcts present in the area of the basal ganglia. 3. Central atrophy of moderate degree. 4. 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 [facility]
[2020-03-07] MEDS: atorvaSTATin 40 MG Tab PO SCH (20:04)
[2020-03-07] MEDS: Diltiazem 180 MG Cap.CD PO SCH (20:04)
[2020-03-08] MEDS: Sennosides 8.6 MG Tab PO SCH (09:12)
[2020-03-08] MEDS: MULTIVITAMIN PO SCH (09:12)
[2020-03-08] MEDS: Omeprazole 20 MG *PTOM PO SCH (09:12)
[2020-03-08] MEDS: Oxybutynin 5 MG Tab PO SCH ×2 (09:12→20:00)
[2020-03-08] MEDS: Apixaban 5 MG Tab PO SCH ×2 (09:12→20:01)
[2020-03-08] MEDS: Acetaminophen 500 MG Tab PO SCH ×3 (09:12→20:00)
[2020-03-08] MEDS: BUMETANIDE 0.5 MG PO SCH (09:12)
--- NOTE | 2020-03-08 11:00 | PCM.PN ---
- General Info Date of Service: 03/08/20 Admission Dx/Problem (Free Text): Patient status changed from observation to inpatient due to continued weakness, abnormal gait, and creased fall risk. The patient has been checked for orthostatic hypertension at least once yesterday and twice today and was found to be positive yesterday and negative twice today. However physical therapy and Occupational Therapy report abnormal gait with weakness particularly in the left knee increased fall risk. - Review of Systems General: Reports: Weakness, Fatigue, Malaise Pulmonary: Reports: No Symptoms Cardiovascular: Reports: No Symptoms Gastrointestinal: Reports: No Symptoms Genitourinary: Reports: No Symptoms Musculoskeletal: Reports: Other (left leg weakness) Skin: Reports: No Symptoms Neurological: Reports: Dizziness, Difficulty Walking, Gait Disturbance - Patient Data Vitals - Most Recent: Last Vital Signs Temp 36.9 C 03/08/20 04:00 Pulse 66 03/08/20 04:00 Resp 18 03/08/20 04:00 BP 143/62 H 03/08/20 04:00 Pulse Ox 92 L 03/08/20 04:00 Orthostatic Blood Pressure [ 134/57 Seated] Orthostatic Blood Pressure [ 113/59 Standing] Weight - Most Recent: 78.131 kg I&O - Last 24 Hours: Intake & Output 03/07/20 03/08/20 03/08/20 22:59 06:59 14:59 Intake Total 300 200 Balance 300 200 Lab Results Last 24 Hours: Laboratory Results - last 24 hr 03/08/20 03/08/20 Range/Units 06:30 06:30 WBC 5.7 (3.0-10.3) x10-3/uL RBC 4.19 (3.60-5.20) x10(6)uL Hgb 12.9 (11.4-15.5) g/dL Hct 39.5 (34.2-48.2) % MCV 94.3 (76.7-100.5) fL MCH 30.8 (23.9-33.9) pg MCHC 32.6 (31.9-34.8) g/dL RDW 12.9 (12.3-16.5) % Plt Count 152 (151-488) x10(3)uL MPV 8.7 (7.1-12.4) fL Neut % (Auto) 67.7 (30.8-76.2) % Lymph % (Auto) 18.8 (18.4-52.1) % [place] % (Auto) 10.5 (4.4-15.7) % Eos % (Auto) 2.2 (0.6-8.1) % Baso % (Auto) 0.8 (0.2-1.5) % Neut # (Auto) 3.9 (1.5-6.3) x10-3/uL Lymph # (Auto) 1.1 (1.0-4.4) x10-3/uL [place] # (Auto) 0.6 (0.3-1.0) x10-3/uL Eos # (Auto) 0.1 (0.0-0.8) x10-3/uL Baso # (Auto) 0.0 (0.0-0.1) x10-3/uL Sodium 145 (135-145) mmol/L Potassium 4.3 (3.5-5.3) mmol/L Chloride 108 (100-110) mmol/L Carbon Dioxide 29 (21-32) mmol/L BUN 14 (7-18) mg/dL Creatinine 1.1 H (0.55-1.02) mg/dL Est Cr Clr Drug Dosing 30.11 mL/min Estimated GFR (MDRD) 47 L (>60) BUN/Creatinine Ratio 12.7 (9-20) Glucose 87 (80-116) mg/dL Calcium 9.1 (8.6-10.2) mg/dL Med Orders - Current: Current Medications Acetaminophen (Tylenol Extra Strength) 1,000 mg PO TID [facility] Last Admin: 03/08/20 09:12 Dose: 1,000 mg Documented by: Apixaban (Eliquis) 5 mg PO BID [facility] Last Admin: 03/08/20 09:12 Dose: 5 mg Documented by: Atorvastatin Calcium (Lipitor) 40 mg PO BEDTIME [facility] Last Admin: 03/07/20 20:04 Dose: 40 mg Documented by: Diltiazem HCl (Cardizem Cd) 180 mg PO BEDTIME [facility] Last Admin: 03/07/20 20:04 Dose: 180 mg Documented by: Meclizine HCl (Antivert) 25 mg PO Q6H PRN PRN Reason: vertigo Last Admin: 03/08/20 09:21 Dose: 25 mg Documented by: Bumetanide 0.5mg * (Ptom) 0.5 each PO DAILY [facility] Last Admin: 03/08/20 09:12 Dose: 0.5 each Documented by: (Multivitamin [One Daily Multivitamin] 1 Each) *Ptom 1 each PO DAILY [facility] Last Admin: 03/08/20 09:12 Dose: 1 each Documented by: Omeprazole 20 Mg * (Ptom) 20 mg PO DAILY [facility] Last Admin: 03/08/20 09:12 Dose: 20 mg Documented by: Ondansetron HCl (Zofran) 4 mg IVPUSH Q4H PRN PRN Reason: Nausea/Vomiting Oxybutynin Chloride (Oxybutynin) 5 mg PO BID [facility] Last Admin: 03/08/20 09:12 Dose: 5 mg Documented by: Senna (Senna) 8.6 mg PO DAILY [facility] Last Admin: 03/08/20 09:12 Dose: 8.6 mg Documented by: Discontinued Medications Potassium Chloride/Sodium Chloride (Normal Saline With 20 Meq Kcl) 1,000 mls @ 100 mls/hr IV ASDIRECTED [facility] Last Admin: 03/06/20 23:21 Dose: 100 mls/hr Documented by: Meclizine HCl (Antivert) 25 mg PO ONETIME ONE Stop: 03/06/20 20:39 Last Admin: 03/06/20 20:51 Dose: 25 mg Documented by: Ondansetron HCl (Zofran Odt) 4 mg PO ONETIME ONE Stop: 03/06/20 20:39 Last Admin: 03/06/20 20:43 Dose: 4 mg Documented by: Tramadol HCl (Ultram) 50 mg PO TID PRN PRN Reason: Pain Trimethoprim/Sulfamethoxazole (Septra Ds) 1 tab PO BID [facility] Last Admin: 03/06/20 23:20 Dose: 1 tab Documented by: - Exam General: Alert, Oriented, Cooperative Lungs: Clear to Auscultation Cardiovascular: Regular Rate, Regular Rhythm Extremities: Pedal Edema Neurological: No: Strength Equal Bilateral Psy/Mental Status: Alert, Depressed Sepsis Event Note - Evaluation Sepsis Screening Result: No Definite Risk - Focused Exam Vital Signs: Vital Signs Temp Pulse Resp BP Pulse Ox 03/08/20 04:00 36.9 C 66 18 143/62 H 92 L 03/08/20 01:30 36.6 C 61 18 134/67 93 L - Problem List Review Problem List Initiated/Reviewed/Updated: Yes - My Orders Last 24 Hours: My Active Orders 03/08/20 10:51 Admission Status [Patient Status] [ADT] Routine - Assessment Assessment:: Patient has continuing weakness and is having difficulty ambulating and weakness with PT. She will benefit from continuing PT to reduce fall risk. - Plan Plan:: Encourage oral fluids.PT/OT consult. DC IVF,oral antibiotics.Resume home meds. DC Tele. Continue PT/OT, consider psychiatry evaluation.
[2020-03-08] MEDS: atorvaSTATin 40 MG Tab PO SCH (20:00)
[2020-03-08] MEDS: Diltiazem 180 MG Cap.CD PO SCH (20:01)
[2020-03-09] MEDS: Acetaminophen 500 MG Tab PO SCH ×3 (09:28→20:02)
[2020-03-09] MEDS: Bumetanide 1 MG Tab PO SCH (09:28)
[2020-03-09] MEDS: Apixaban 5 MG Tab PO SCH ×2 (09:28→20:03)
[2020-03-09] MEDS: Oxybutynin 5 MG Tab PO SCH ×2 (09:28→20:03)
[2020-03-09] MEDS: Multivitamin Tab PO SCH (09:28)
[2020-03-09] MEDS: Pantoprazole 40 MG Tab.CR PO SCH (09:29)
[2020-03-09] MEDS: Sennosides 8.6 MG Tab PO SCH (09:29)
--- NOTE | 2020-03-09 09:35 | PCM.PN ---
- General Info Date of Service: 03/09/20 Admission Dx/Problem (Free Text): Patient status changed from observation to inpatient due to continued weakness, abnormal gait, and creased fall risk. The patient has been checked for orthostatic hypertension at least once yesterday and twice today and was found to be positive yesterday and negative twice today. However physical therapy and Occupational Therapy report abnormal gait with weakness particularly in the left knee increased fall risk. Functional Status: Reports: Pain Controlled, Tolerating Diet, Ambulating, Urinating - Review of Systems General: Reports: Weakness, Fatigue, Malaise HEENT: Reports: No Symptoms Pulmonary: Reports: No Symptoms Cardiovascular: Reports: No Symptoms Gastrointestinal: Reports: No Symptoms Genitourinary: Reports: No Symptoms Musculoskeletal: Reports: Leg Pain, Joint Swelling Skin: Reports: No Symptoms Neurological: Reports: Dizziness, Difficulty Walking, Weakness, Gait Disturbance Psychiatric: Reports: Depression - Patient Data Vitals - Most Recent: Last Vital Signs Temp 36.3 C 03/09/20 04:00 Pulse 60 03/09/20 04:00 Resp 18 03/09/20 04:00 BP 141/57 H 03/09/20 04:00 Pulse Ox 96 03/09/20 04:00 Orthostatic Blood Pressure [ 115/55 Seated] Orthostatic Blood Pressure [ 124/51 Standing] Weight - Most Recent: 78.131 kg I&O - Last 24 Hours: Intake & Output 03/08/20 03/09/20 03/09/20 22:59 06:59 14:59 Intake Total 200 200 Balance 200 200 Demetrius Results Last 24 Hours: Microbiology 03/06/20 19:58 Urine Culture - Final Urine, Clean Catch MIXED POSITIVE [facility]SEPH[facility]IE DAY 2 Med Orders - Current: Current Medications Acetaminophen (Tylenol Extra Strength) 1,000 mg PO TID [facility] Last Admin: 03/09/20 09:28 Dose: 1,000 mg Documented by: Apixaban (Eliquis) 5 mg PO BID [facility] Last Admin: 03/09/20 09:28 Dose: 5 mg Documented by: Atorvastatin Calcium (Lipitor) 40 mg PO BEDTIME [facility] Last Admin: 03/08/20 20:00 Dose: 40 mg Documented by: Bumetanide (Bumex) 0.5 mg PO DAILY [facility] Last Admin: 03/09/20 09:28 Dose: 0.5 mg Documented by: Diltiazem HCl (Cardizem Cd) 180 mg PO BEDTIME [facility] Last Admin: 03/08/20 20:01 Dose: 180 mg Documented by: Meclizine HCl (Antivert) 25 mg PO Q6H PRN PRN Reason: vertigo Last Admin: 03/08/20 09:21 Dose: 25 mg Documented by: Multivitamins/Minerals/Vitamin C (Tab-A-Chrissie) 1 tab PO DAILY [facility] Last Admin: 03/09/20 09:28 Dose: 1 tab Documented by: Ondansetron HCl (Zofran) 4 mg IVPUSH Q4H PRN PRN Reason: Nausea/Vomiting Oxybutynin Chloride (Oxybutynin) 5 mg PO BID [facility] Last Admin: 03/09/20 09:28 Dose: 5 mg Documented by: Pantoprazole Sodium (Protonix) 40 mg PO DAILY [facility] Last Admin: 03/09/20 09:29 Dose: 40 mg Documented by: Senna (Senna) 8.6 mg PO DAILY [facility] Last Admin: 03/09/20 09:29 Dose: 8.6 mg Documented by: Discontinued Medications Potassium Chloride/Sodium Chloride (Normal Saline With 20 Meq Kcl) 1,000 mls @ 100 mls/hr IV ASDIRECTED [facility] Last Admin: 03/06/20 23:21 Dose: 100 mls/hr Documented by: Meclizine HCl (Antivert) 25 mg PO ONETIME ONE Stop: 03/06/20 20:39 Last Admin: 03/06/20 20:51 Dose: 25 mg Documented by: Bumetanide 0.5mg * (Ptom) 0.5 each PO DAILY [facility] Last Admin: 03/08/20 09:12 Dose: 0.5 each Documented by: (Multivitamin [One Daily Multivitamin] 1 Each) *Ptom 1 each PO DAILY [facility] Last Admin: 03/08/20 09:12 Dose: 1 each Documented by: Omeprazole 20 Mg * (Ptom) 20 mg PO DAILY [facility] Last Admin: 03/08/20 09:12 Dose: 20 mg Documented by: Ondansetron HCl (Zofran Odt) 4 mg PO ONETIME ONE Stop: 03/06/20 20:39 Last Admin: 03/06/20 20:43 Dose: 4 mg Documented by: Tramadol HCl (Ultram) 50 mg PO TID PRN PRN Reason: Pain Trimethoprim/Sulfamethoxazole (Septra Ds) 1 tab PO BID [facility] Last Admin: 03/06/20 23:20 Dose: 1 tab Documented by: - Exam Quality Assessment: DVT Prophylaxis General: Alert, Oriented, Cooperative Lungs: Clear to Auscultation, Normal Respiratory Effort Cardiovascular: Regular Rate, Regular Rhythm GI/Abdominal Exam: Normal Bowel Sounds, Non-Tender Back Exam: Other (Thoracic kyphosis) Extremities: Pedal Edema Skin: Warm, Dry, Intact Neurological: No: Normal Gait, Strength Equal Bilateral Psy/Mental Status: Alert, Normal Affect, Depressed Sepsis Event Note - Evaluation Sepsis Screening Result: No Definite Risk - Focused Exam Vital Signs: Vital Signs Temp Pulse Resp BP Pulse Ox 03/09/20 04:00 36.3 C 60 18 141/57 H 96 03/09/20 00:00 36.6 C 60 18 150/62 H 96 - Problem List Review Problem List Initiated/Reviewed/Updated: Yes - My Orders Last 24 Hours: My Active Orders 03/08/20 10:51 Admission Status [Patient Status] [ADT] Routine - Assessment Assessment:: Patient has continuing weakness and is having difficulty ambulating and weakness with PT. She will benefit from continuing PT to reduce fall risk. - Plan Plan:: Continue PT/OT, consider psychiatry evaluation. I explained to the patient that the more exercise she can get better she will likely feel. This therapy will see the patient again this morning and nursing will walk the patient around the unit several times tomorrow. If she continues to improve we will consider discharge on Wednesday with home health with PT/OT.
[2020-03-09] MEDS: atorvaSTATin 40 MG Tab PO SCH (20:03)
[2020-03-09] MEDS: Diltiazem 180 MG Cap.CD PO SCH (20:11)
[2020-03-10] MEDS: Acetaminophen 500 MG Tab PO SCH ×3 (08:08→20:03)
[2020-03-10] MEDS: Oxybutynin 5 MG Tab PO SCH ×2 (08:08→20:03)
[2020-03-10] MEDS: Apixaban 5 MG Tab PO SCH ×2 (08:08→20:03)
[2020-03-10] MEDS: Pantoprazole 40 MG Tab.CR PO SCH (08:08)
[2020-03-10] MEDS: Sennosides 8.6 MG Tab PO SCH (08:08)
[2020-03-10] MEDS: Multivitamin Tab PO SCH (08:08)
[2020-03-10] MEDS: Bumetanide 1 MG Tab PO SCH (08:09)
--- NOTE | 2020-03-10 12:25 | PCM.PN ---
- General Info Date of Service: 03/10/20 Admission Dx/Problem (Free Text): Patient status changed from observation to inpatient due to continued weakness, abnormal gait, and creased fall risk. The patient has been checked for orthostatic hypertension at least once yesterday and twice today and was found to be positive yesterday and negative twice today. However physical therapy and Occupational Therapy report abnormal gait with weakness particularly in the left knee increased fall risk. Subjective Update: Patient states that she feels better and stronger today. Nursing reports that the patient has been able to ambulate with minimal assistance. Functional Status: Reports: Pain Controlled, Tolerating Diet, Ambulating, Urinating - Review of Systems General: Reports: Weakness, Malaise HEENT: Reports: No Symptoms Pulmonary: Reports: No Symptoms Cardiovascular: Reports: No Symptoms Gastrointestinal: Reports: No Symptoms Genitourinary: Reports: No Symptoms Musculoskeletal: Reports: No Symptoms Skin: Reports: No Symptoms Neurological: Reports: No Symptoms Psychiatric: Reports: Depression - Patient Data Vitals - Most Recent: Last Vital Signs Temp 36.7 C 03/10/20 08:00 Pulse 65 03/10/20 08:00 Resp 18 03/10/20 08:00 BP 138/57 L 03/10/20 08:00 Pulse Ox 95 03/10/20 08:00 Orthostatic Blood Pressure [ 115/55 Seated] Orthostatic Blood Pressure [ 124/51 Standing] Weight - Most Recent: 78.216 kg Med Orders - Current: Current Medications Acetaminophen (Tylenol Extra Strength) 1,000 mg PO TID [facility] Last Admin: 03/10/20 08:08 Dose: 1,000 mg Documented by: Apixaban (Eliquis) 5 mg PO BID [facility] Last Admin: 03/10/20 08:08 Dose: 5 mg Documented by: Atorvastatin Calcium (Lipitor) 40 mg PO BEDTIME [facility] Last Admin: 03/09/20 20:03 Dose: 40 mg Documented by: Bumetanide (Bumex) 0.5 mg PO DAILY [facility] Last Admin: 03/10/20 08:09 Dose: 0.5 mg Documented by: Diltiazem HCl (Cardizem Cd) 180 mg PO BEDTIME [facility] Last Admin: 03/09/20 20:11 Dose: 180 mg Documented by: Meclizine HCl (Antivert) 25 mg PO Q6H PRN PRN Reason: vertigo Last Admin: 03/08/20 09:21 Dose: 25 mg Documented by: Multivitamins/Minerals/Vitamin C (Tab-A-Chrissie) 1 tab PO DAILY [facility] Last Admin: 03/10/20 08:08 Dose: 1 tab Documented by: Ondansetron HCl (Zofran) 4 mg IVPUSH Q4H PRN PRN Reason: Nausea/Vomiting Oxybutynin Chloride (Oxybutynin) 5 mg PO BID [facility] Last Admin: 03/10/20 08:08 Dose: 5 mg Documented by: Pantoprazole Sodium (Protonix) 40 mg PO DAILY [facility] Last Admin: 03/10/20 08:08 Dose: 40 mg Documented by: Senna (Senna) 8.6 mg PO DAILY [facility] Last Admin: 03/10/20 08:08 Dose: 8.6 mg Documented by: Discontinued Medications Potassium Chloride/Sodium Chloride (Normal Saline With 20 Meq Kcl) 1,000 mls @ 100 mls/hr IV ASDIRECTED [facility] Last Admin: 03/06/20 23:21 Dose: 100 mls/hr Documented by: Meclizine HCl (Antivert) 25 mg PO ONETIME ONE Stop: 03/06/20 20:39 Last Admin: 03/06/20 20:51 Dose: 25 mg Documented by: Bumetanide 0.5mg * (Ptom) 0.5 each PO DAILY [facility] Last Admin: 03/08/20 09:12 Dose: 0.5 each Documented by: (Multivitamin [One Daily Multivitamin] 1 Each) *Ptom 1 each PO DAILY [facility] Last Admin: 03/08/20 09:12 Dose: 1 each Documented by: Omeprazole 20 Mg * (Ptom) 20 mg PO DAILY [facility] Last Admin: 03/08/20 09:12 Dose: 20 mg Documented by: Ondansetron HCl (Zofran Odt) 4 mg PO ONETIME ONE Stop: 03/06/20 20:39 Last Admin: 03/06/20 20:43 Dose: 4 mg Documented by: Tramadol HCl (Ultram) 50 mg PO TID PRN PRN Reason: Pain Trimethoprim/Sulfamethoxazole (Septra Ds) 1 tab PO BID [facility] Last Admin: 03/06/20 23:20 Dose: 1 tab Documented by: - Exam General: Alert, Oriented, Cooperative, No Acute Distress Lungs: Clear to Auscultation, Normal Respiratory Effort Cardiovascular: Regular Rate, Regular Rhythm GI/Abdominal Exam: Normal Bowel Sounds, Soft, Non-Tender Back Exam: Other (Thoracic kyphosis) Extremities: Pedal Edema Skin: Warm, Dry Neurological: No New Focal Deficit Psy/Mental Status: Alert, Depressed Sepsis Event Note - Evaluation Sepsis Screening Result: No Definite Risk - Focused Exam Vital Signs: Vital Signs Temp Pulse Resp BP Pulse Ox 03/10/20 08:00 36.7 C 65 18 138/57 L 95 03/10/20 04:00 36.9 C 63 18 149/64 H 95 - Problem List Review Problem List Initiated/Reviewed/Updated: Yes - Assessment Assessment:: Patient has continuing weakness and is having difficulty ambulating and weakness with PT. She will benefit from continuing PT to reduce fall risk. - Plan Plan:: Continue PT/OT, consider psychiatry evaluation. I explained to the patient that the more exercise she can get better she will likely feel. If she continues to improve we will consider discharge tomorrow with home health with PT/OT.
[2020-03-10] MEDS: Diltiazem 180 MG Cap.CD PO SCH (20:03)
[2020-03-10] MEDS: atorvaSTATin 40 MG Tab PO SCH (20:03)
[2020-03-11] MEDS: Bumetanide 1 MG Tab PO SCH (08:29)
[2020-03-11] MEDS: Apixaban 5 MG Tab PO SCH (08:30)
[2020-03-11] MEDS: Sennosides 8.6 MG Tab PO SCH (08:30)
[2020-03-11] MEDS: Multivitamin Tab PO SCH (08:30)
[2020-03-11] MEDS: Oxybutynin 5 MG Tab PO SCH (08:30)
[2020-03-11] MEDS: Acetaminophen 500 MG Tab PO SCH (08:30)
[2020-03-11] MEDS: Pantoprazole 40 MG Tab.CR PO SCH (08:30)
[2020-03-11 10:24] VITALS: BP 133/39; PULSE 70
--- NOTE | 2020-03-11 11:39 | PCM.DCSUM1 ---
Discharge Summary - Hospital Course Free Text/Narrative:: Patient was admitted after being found on the floor in her assisted snf. Was initially thought that she had a urinary tract infection. She had also complained of dizziness chronically. Laboratory testing showed that the patient likely did not have urinary tract infection. Antibiotics were briefly given. Was tried on meclizine which showed no efficacy. Received PT/OT and her functional status improved significantly. She will continue with physical therapy after discharge with home health. - Discharge Data Discharge Date: 03/11/20 Discharge Disposition: Home, Home Health Agency 06 Condition: Fair - Referral to Home Health Date of Face to Face Encounter: 03/11/20 Reason for Homebound Status: Abnormal gait, weakness, dizziness Primary Care Physician: Ever Pro MD Skilled Need: Abnormal gait, weakness, dizziness - Discharge Diagnosis/Problem(s) (1) Weakness SNOMED Code(s): 46520376 ICD Code: R53.1 - WEAKNESS Status: Acute Current Visit: No (2) Fall in elderly patient SNOMED Code(s): 242753542 ICD Code: R29.6 - REPEATED FALLS Status: Chronic Priority: High Current Visit: No (3) Abnormal gait SNOMED Code(s): 98082419 ICD Code: R26.9 - UNSPECIFIED ABNORMALITIES OF GAIT AND MOBILITY Status: Acute Current Visit: Yes - Patient Summary/Data Consults: Consultations 03/07/20 08:05 OT Evaluation and Treatment [CONS] Routine Please Evaluate and Treat. OT Reason for Consult: ADL's This query below is only for informational purposes and is not editable. Admission Diagnosis/Problem: UTI (urinary tract infection) due to urinary indwelling catheter PT Evaluation and Treatment [CONS] Routine Please Evaluate and Treat. PT Reason for Consult: Vestibular This query below is only for informational purposes and is not editable. Admission Diagnosis/Problem: UTI (urinary tract infection) due to urinary indwelling catheter - Patient Instructions Diet: Heart Healthy Diet Activity: As Tolerated - Discharge Plan *PRESCRIPTION DRUG MONITORING PROGRAM REVIEWED*: Not Applicable *COPY OF PRESCRIPTION DRUG MONITORING REPORT IN PATIENT ROSIE: Not Applicable Home Medications: Home Meds Multivitamin [One Daily Multivitamin] 1 each PO DAILY 01/09/16 [History] Oxybutynin Chloride 5 mg PO BID 09/05/17 [History] Apixaban [Eliquis] 5 mg PO BID 10/26/18 [History] Sennosides [Senokot] 8.6 mg PO DAILY 10/26/18 [History] dilTIAZem HCL [Cardizem Cd] 180 mg PO BEDTIME 10/26/18 [History] Bumetanide [Bumex] 0.5 mg PO DAILY 10/05/19 [History] atorvaSTATin [Lipitor] 40 mg PO DAILY 10/05/19 [History] traMADol [Ultram] 50 mg PO TID PRN 10/05/19 [History] Omeprazole Magnesium [Prilosec Otc] 20 mg PO DAILY 03/06/20 [History] Acetaminophen [Tylenol Extra Strength] 1,000 mg PO TID 03/07/20 [History] Patient Handouts: Vertigo, [id number], Urinary Tract Infection, Adult Referrals: Ever Pro MD [Primary Care Provider] - - Discharge Summary/Plan Comment DC Time >30 min.: No Discharge Summary/Plan Comment: Patient discharged back to assisted living with home health and physical therapy. Patient has had significant improvement in strength, gait, ambulation. Consider theatric evaluation and treatment. - Patient Data Vitals - Most Recent: Last Vital Signs Temp 36.3 C 03/11/20 08:00 Pulse 70 03/11/20 08:00 Resp 18 03/11/20 08:00 BP 133/39 L 03/11/20 08:00 Pulse Ox 97 03/11/20 08:00 Orthostatic Blood Pressure [ 115/55 Seated] Orthostatic Blood Pressure [ 124/51 Standing] Weight - Most Recent: 78.075 kg I&O - Last 24 hours: Intake & Output 03/10/20 03/11/20 03/11/20 22:59 06:59 14:59 Intake Total 200 Balance 200 Lab Results - Last 24 hrs: Laboratory Results - last 24 hr 03/11/20 Range/Units 09:40 SARS-CoV-2 RNA (JORGE) Negative (NEGATIVE) Med Orders - Current: Current Medications Acetaminophen (Tylenol Extra Strength) 1,000 mg PO TID [facility] Last Admin: 03/11/20 08:30 Dose: 1,000 mg Documented by: Apixaban (Eliquis) 5 mg PO BID [facility] Last Admin: 03/11/20 08:30 Dose: 5 mg Documented by: Atorvastatin Calcium (Lipitor) 40 mg PO BEDTIME [facility] Last Admin: 03/10/20 20:03 Dose: 40 mg Documented by: Bumetanide (Bumex) 0.5 mg PO DAILY [facility] Last Admin: 03/11/20 08:29 Dose: 0.5 mg Documented by: Diltiazem HCl (Cardizem Cd) 180 mg PO BEDTIME [facility] Last Admin: 03/10/20 20:03 Dose: 180 mg Documented by: Meclizine HCl (Antivert) 25 mg PO Q6H PRN PRN Reason: vertigo Last Admin: 03/08/20 09:21 Dose: 25 mg Documented by: Multivitamins/Minerals/Vitamin C (Tab-A-Chrissie) 1 tab PO DAILY [facility] Last Admin: 03/11/20 08:30 Dose: 1 tab Documented by: Ondansetron HCl (Zofran) 4 mg IVPUSH Q4H PRN PRN Reason: Nausea/Vomiting Oxybutynin Chloride (Oxybutynin) 5 mg PO BID [facility] Last Admin: 03/11/20 08:30 Dose: 5 mg Documented by: Pantoprazole Sodium (Protonix) 40 mg PO DAILY [facility] Last Admin: 03/11/20 08:30 Dose: 40 mg Documented by: Senna (Senna) 8.6 mg PO DAILY [facility] Last Admin: 03/11/20 08:30 Dose: 8.6 mg Documented by: Discontinued Medications Potassium Chloride/Sodium Chloride (Normal Saline With 20 Meq Kcl) 1,000 mls @ 100 mls/hr IV ASDIRECTED [facility] Last Admin: 03/06/20 23:21 Dose: 100 mls/hr Documented by: Meclizine HCl (Antivert) 25 mg PO ONETIME ONE Stop: 03/06/20 20:39 Last Admin: 03/06/20 20:51 Dose: 25 mg Documented by: Bumetanide 0.5mg * (Ptom) 0.5 each PO DAILY [facility] Last Admin: 03/08/20 09:12 Dose: 0.5 each Documented by: (Multivitamin [One Daily Multivitamin] 1 Each) *Ptom 1 each PO DAILY [facility] Last Admin: 03/08/20 09:12 Dose: 1 each Documented by: Omeprazole 20 Mg * (Ptom) 20 mg PO DAILY [facility] Last Admin: 03/08/20 09:12 Dose: 20 mg Documented by: Ondansetron HCl (Zofran Odt) 4 mg PO ONETIME ONE Stop: 03/06/20 20:39 Last Admin: 03/06/20 20:43 Dose: 4 mg Documented by: Tramadol HCl (Ultram) 50 mg PO TID PRN PRN Reason: Pain Trimethoprim/Sulfamethoxazole (Septra Ds) 1 tab PO BID [facility] Last Admin: 03/06/20 23:20 Dose: 1 tab Documented by:
== END 2020-03-11 13:12 | disposition home health service (06) | DRG 641 ==
LOC: FB.ED 20:15 → UNDOADMOB 21:57 → FB.MS 21:57 → OBSVTOIN 03-08 10:51
PROVIDERS: ADMIT Emergency Medicine; ATTEND Student in an Organized Health Care Education/Training Program
DX: T83.511A Infection and inflammatory reaction due to indwelling urethral catheter, initial encounter (principal); E87.6 Hypokalemia; R42 Dizziness and giddiness; E87.0 Hyperosmolality and hypernatremia; H35.30 Unspecified macular degeneration; R29.6 Repeated falls; R26.9 Unspecified abnormalities of gait and mobility; H54.7 Unspecified visual loss; E78.00 Pure hypercholesterolemia, unspecified; I48.0 Paroxysmal atrial fibrillation; I10 Essential (primary) hypertension; R32 Unspecified urinary incontinence; M19.90 Unspecified osteoarthritis, unspecified site; G89.29 Other chronic pain; M54.2 Cervicalgia; W19.XXXA Unspecified fall, initial encounter; F03.90 Unspecified dementia, unspecified severity, without behavioral disturbance, psychotic disturbance, mood disturbance, and anxiety; R53.1 Weakness; F32.9 Major depressive disorder, single episode, unspecified; M48.02 Spinal stenosis, cervical region; Z91.81 History of falling; M43.12 Spondylolisthesis, cervical region; H40.9 Unspecified glaucoma; E66.9 Obesity, unspecified; Z85.038 Personal history of other malignant neoplasm of large intestine; Z90.49 Acquired absence of other specified parts of digestive tract; Z86.73 Personal history of transient ischemic attack (TIA), and cerebral infarction without residual deficits; Z79.01 Long term (current) use of anticoagulants; Z79.899 Other long term (current) drug therapy; Z20.822 Contact with and (suspected) exposure to COVID-19
CPT/HCPCS: 36415; 70450; 71045; 80048; 80053; 81001; 82550; 84484; 85025; 87086; 93005; 97116-GP; 97162-GP; 97165-GO; 97530-GO; 97530-GP; 97535-GO; 99284; 99285-25; A9270-GY; G0378; J3480; U0002

== ENCOUNTER 2022-08-30 08:15 | Emergency (ER) | payer MEDICARE, BC ==
[2022-08-30 08:52] LABS: HEMATOCRIT 38.4 % (34.2-48.2); HEMOGLOBIN 12.8 g/dL (11.4-15.5); MEAN CORPUSCULAR HEMOGLOBIN 31.6 pg (23.9-33.9); MEAN CORPUSCULAR HGB CONC 33.2 g/dL (31.9-34.8); MEAN CORPUSCULAR VOLUME 95.3 fL (76.7-100.5); MEAN PLATELET VOLUME 9.1 fL (7.1-12.4); PLATELET COUNT,PLT 141 x10(3)uL (151-488); RED BLOOD CELL COUNT 4.03 x10(6)uL (3.60-5.20); RED CELL DISTRIBUTION WIDTH 13.1 % (12.3-16.5); WHITE BLOOD CELL COUNT,WBC 10.5 x10-3/uL (3.0-10.3)
[2022-08-30 08:53] LABS: BILIRUBIN,URINE NEGATIVE (NEGATIVE); GLUCOSE,URINE NORMAL (NORMAL); KETONES,URINE NEGATIVE (NEGATIVE); LEUKOCYTE ESTERASE,URINE NEGATIVE (NEGATIVE); NITRITE,URINE NEGATIVE (NEGATIVE); OCCULT BLOOD,URINE NEGATIVE (NEGATIVE); PROTEIN,URINE NEGATIVE (NEGATIVE); UROBILINOGEN,URINE NORMAL (NEGATIVE)
[2022-08-30 08:56] LABS: BLOOD UREA NITROGEN,BUN 21 mg/dL (7-18); BUN/CREATININE RATIO 19.1 (9-20); CALCIUM 9.7 mg/dL (8.6-10.2); CARBON DIOXIDE,CO2 28 mmol/L (21-32); CHLORIDE,CL 106 mmol/L (100-110); CREATININE 1.1 mg/dL (0.55-1.02); ESTIMATED GFR 49 mL/min (>60); GLUCOSE RANDOM 101 mg/dL (80-116); POTASSIUM,K 3.6 mmol/L (3.5-5.3); SODIUM,NA 143 mmol/L (135-145)
[2022-08-30 08:57] LABS: APPEARANCE,URINE CLEAR (CLEAR); COLOR,URINE YELLOW (YELLOW)
[2022-08-30 08:58] LABS: BACTERIA,URINE FEW (NS); SQUAMOUS EPITHELIAL CELLS,UR OCCASIONAL (NS,R,O); WBC,URINE 0-5 (0-5)
[2022-08-30 09:02] LABS: A/G RATIO 1.2; ALANINE AMINOTRANSFERASE,ALT 21 U/L (12-36); ALBUMIN 3.6 g/dL (3.2-4.6); ALKALINE PHOSPHATASE 75 IU/L (56-112); ASPARTATE AMNIOTRANSFERASE,AST 27 IU/L (5-25); BILIRUBIN TOTAL 0.7 mg/dL (0.1-1.3); PROTEIN TOTAL,TP 6.6 g/dL (6.0-8.0)
[2022-08-30 09:09] LABS: LYMPHOCYTES PERCENT MAN 5 % (13-37); MONOCYTES PERCENT MAN 7 % (4-12); SEG NEUTROPHILS PERCENT MAN 88 % (46-82)
[2022-08-30 14:08] VITALS: BP 154/53; PULSE 67
== END 2022-08-30 14:00 ==
LOC: FB.ED 08:15
DX: R42 Dizziness and giddiness (principal); R26.89 Other abnormalities of gait and mobility; G89.29 Other chronic pain; M54.9 Dorsalgia, unspecified; I48.91 Unspecified atrial fibrillation; I10 Essential (primary) hypertension; E78.00 Pure hypercholesterolemia, unspecified; E66.9 Obesity, unspecified; Z68.26 Body mass index [BMI] 26.0-26.9, adult; Z79.899 Other long term (current) drug therapy; Z79.01 Long term (current) use of anticoagulants; W18.30XA Fall on same level, unspecified, initial encounter
CPT/HCPCS: 36415; 70450; 71045; 72072; 72100; 72125; 72170; 80053; 81001; 84484; 85025; 85379; 86140; 93005; 93010; 99284; 99285

== ENCOUNTER 2023-03-19 09:02 | Emergency (ER) | payer MEDICARE, BC ==
[2023-03-19 09:23] VITALS: BP 121/51; PULSE 83
[2023-03-19] MEDS ORDERED: Sodium Chloride 0.9% 10 ML Syringe FLUSH PRN (09:39)
[2023-03-19 10:02] LABS: BLOOD UREA NITROGEN,BUN 23 mg/dL (7-18); BUN/CREATININE RATIO 19.2 (9-20); CALCIUM 9.8 mg/dL (8.6-10.2); CARBON DIOXIDE,CO2 26 mmol/L (21-32); CHLORIDE,CL 103 mmol/L (100-110); CREATININE 1.2 mg/dL (0.55-1.02); EST CRCL DRUG DOSING (CG) 23.72 mL/min; ESTIMATED GFR 44 mL/min (>60); GLUCOSE RANDOM 117 mg/dL (80-116); HEMATOCRIT 27.1 % (34.2-48.2); HEMOGLOBIN 9.4 g/dL (11.4-15.5); MEAN CORPUSCULAR HEMOGLOBIN 32.5 pg (23.9-33.9); MEAN CORPUSCULAR HGB CONC 34.6 g/dL (31.9-34.8); MEAN CORPUSCULAR VOLUME 94.1 fL (76.7-100.5); MEAN PLATELET VOLUME 9.3 fL (7.1-12.4); PLATELET COUNT,PLT 175 x10(3)uL (151-488); RED BLOOD CELL COUNT 2.88 x10(6)uL (3.60-5.20); RED CELL DISTRIBUTION WIDTH 13.7 % (12.3-16.5); SODIUM,NA 139 mmol/L (135-145); WHITE BLOOD CELL COUNT,WBC 9.4 x10-3/uL (3.0-10.3)
[2023-03-19 10:08] LABS: A/G RATIO 1.4; ALANINE AMINOTRANSFERASE,ALT 17 U/L (12-36); ALBUMIN 3.4 g/dL (3.2-4.6); ALKALINE PHOSPHATASE 66 IU/L (56-112); ASPARTATE AMNIOTRANSFERASE,AST 22 IU/L (5-25); BILIRUBIN TOTAL 0.7 mg/dL (0.1-1.3); PROTEIN TOTAL,TP 5.9 g/dL (6.0-8.0)
[2023-03-19 10:09] LABS: INR 1.26 (1.00-1.24); PROTHROMBIN TIME 12.9 sec (9.0-11.1); PTT,PARTIAL THROMBOPLSTIN TIME 29.7 SECONDS (24.4-33.2)
[2023-03-19 10:18] LABS: LYMPHOCYTES PERCENT MAN 3 % (13-37); MONOCYTES PERCENT MAN 3 % (4-12); SEG NEUTROPHILS PERCENT MAN 94 % (46-82)
[2023-03-19 10:27] LABS: BILIRUBIN,URINE NEGATIVE (NEGATIVE); GLUCOSE,URINE NORMAL (NORMAL); KETONES,URINE NEGATIVE (NEGATIVE); LEUKOCYTE ESTERASE,URINE LARGE (NEGATIVE); NITRITE,URINE NEGATIVE (NEGATIVE); OCCULT BLOOD,URINE NEGATIVE (NEGATIVE); PROTEIN,URINE NEGATIVE (NEGATIVE); UROBILINOGEN,URINE NORMAL (NEGATIVE)
[2023-03-19 10:33] LABS: APPEARANCE,URINE CLEAR (CLEAR); BACTERIA,URINE MODERATE (NS); COLOR,URINE YELLOW (YELLOW); SQUAMOUS EPITHELIAL CELLS,UR OCCASIONAL (NS,R,O)
[2023-03-19] MEDS: Sodium Chloride 0.9% 1,000 ML IV SCH (10:57)
[2023-03-19] MEDS: Iopamidol 755 Mg/ML 100 ML Bottle IV SCH (11:04)
[2023-03-19] MEDS: fentaNYL 100 MCG/2 ML SDV IVPUSH STA (12:13)
== END 2023-03-19 13:05 ==
LOC: FB.ED 09:02
DX: D68.32 Hemorrhagic disorder due to extrinsic circulating anticoagulants (principal); M79.605 Pain in left leg; S80.12XA Contusion of left lower leg, initial encounter; I10 Essential (primary) hypertension; E78.00 Pure hypercholesterolemia, unspecified; Z79.01 Long term (current) use of anticoagulants; W01.0XXA Fall on same level from slipping, tripping and stumbling without subsequent striking against object, initial encounter; Z79.899 Other long term (current) drug therapy
CPT/HCPCS: 72193; 73701; 80053; 81001; 85025; 85610; 85730; 87086; 93005; 96361; 96374; 99285; J3010; J7030; Q9967

== ENCOUNTER 2023-11-08 08:10 | Emergency (ER) | payer MEDICARE, BC ==
[2023-11-08] MEDS ORDERED: Sodium Chloride 0.9% 10 ML Syringe FLUSH PRN (08:25)
[2023-11-08] MEDS: Sodium Chloride 0.9% 1,000 ML IV ONE (08:49)
[2023-11-08 08:58] LABS: BASOPHILS PERCENT AUTO 0.3 % (0.2-1.5); EOSINOPHILS ABSOLUTE AUTO 0.1 x10-3/uL (0.0-0.8); HEMATOCRIT 43.2 % (34.2-48.2); HEMOGLOBIN 14.4 g/dL (11.4-15.5); LYMPHOCYTES PERCENT AUTO 17.3 % (18.4-52.1); MEAN CORPUSCULAR HEMOGLOBIN 31.5 pg (23.9-33.9); MEAN CORPUSCULAR HGB CONC 33.4 g/dL (31.9-34.8); MEAN CORPUSCULAR VOLUME 94.4 fL (76.7-100.5); MEAN PLATELET VOLUME 8.9 fL (7.1-12.4); MONOCYTES ABSOLUTE AUTO 0.6 x10-3/uL (0.3-1.0); MONOCYTES PERCENT AUTO 10.8 % (4.4-15.7); NEUTROPHILS PERCENT AUTO 70.6 % (30.8-76.2); PLATELET COUNT,PLT 148 x10(3)uL (151-488); RED BLOOD CELL COUNT 4.57 x10(6)uL (3.60-5.20); RED CELL DISTRIBUTION WIDTH 13.8 % (12.3-16.5); WHITE BLOOD CELL COUNT,WBC 5.7 x10-3/uL (3.0-10.3)
[2023-11-08 09:01] LABS: BLOOD UREA NITROGEN,BUN 17 mg/dL (7-18); BUN/CREATININE RATIO 15.5 (9-20); CARBON DIOXIDE,CO2 30 mmol/L (21-32); CHLORIDE,CL 104 mmol/L (100-110); CREATININE 1.1 mg/dL (0.55-1.02); EST CRCL DRUG DOSING (CG) 25.88 mL/min; ESTIMATED GFR 49 mL/min (>60); GLUCOSE RANDOM 92 mg/dL (80-116); POTASSIUM,K 4.2 mmol/L (3.5-5.3); SODIUM,NA 143 mmol/L (135-145)
[2023-11-08 09:11] LABS: PROTHROMBIN TIME 10.4 sec (9.0-11.1)
[2023-11-08 09:17] LABS: BILIRUBIN,URINE NEGATIVE (NEGATIVE); GLUCOSE,URINE NORMAL (NORMAL); KETONES,URINE NEGATIVE (NEGATIVE); LEUKOCYTE ESTERASE,URINE NEGATIVE (NEGATIVE); NITRITE,URINE NEGATIVE (NEGATIVE); OCCULT BLOOD,URINE NEGATIVE (NEGATIVE); PROTEIN,URINE NEGATIVE (NEGATIVE); UROBILINOGEN,URINE NORMAL (NEGATIVE)
[2023-11-08 09:19] LABS: LACTIC ACID 0.9 mmol/L (0.4-2.0)
[2023-11-08 09:20] LABS: ALANINE AMINOTRANSFERASE,ALT 16 U/L (12-36); ALBUMIN 3.5 g/dL (3.2-4.6); ALKALINE PHOSPHATASE 106 IU/L (56-112); ASPARTATE AMNIOTRANSFERASE,AST 22 IU/L (5-25); BILIRUBIN TOTAL 0.6 mg/dL (0.1-1.3); PROTEIN TOTAL,TP 7.1 g/dL (6.0-8.0)
[2023-11-08 09:20] LABS: APPEARANCE,URINE CLEAR (CLEAR); BACTERIA,URINE FEW (NS); COLOR,URINE YELLOW (YELLOW); SQUAMOUS EPITHELIAL CELLS,UR OCCASIONAL (NS,R,O); WBC,URINE 0-5 (0-5)
[2023-11-08 10:41] VITALS: BP 146/83; PULSE 62
== END 2023-11-08 10:28 ==
LOC: FB.ED 08:10
DX: G45.9 Transient cerebral ischemic attack, unspecified (principal); I10 Essential (primary) hypertension; E78.00 Pure hypercholesterolemia, unspecified; E66.9 Obesity, unspecified; Z79.899 Other long term (current) drug therapy
CPT/HCPCS: 36415; 70450; 80053; 81001; 83605; 85025; 85610; 86140; 96360; 99285; J7030

== ENCOUNTER 2024-01-09 07:00 | Emergency (ER) | payer MEDICARE, BC ==
[2024-01-09 07:19] LABS: BASOPHILS PERCENT AUTO 0.3 % (0.2-1.5); EOSINOPHILS PERCENT AUTO 0.7 % (0.6-8.1); HEMATOCRIT 39.1 % (34.2-48.2); HEMOGLOBIN 13.2 g/dL (11.4-15.5); LYMPHOCYTES ABSOLUTE AUTO 0.9 x10-3/uL (1.0-4.4); LYMPHOCYTES PERCENT AUTO 15.5 % (18.4-52.1); MEAN CORPUSCULAR HEMOGLOBIN 32.2 pg (23.9-33.9); MEAN CORPUSCULAR HGB CONC 33.8 g/dL (31.9-34.8); MEAN CORPUSCULAR VOLUME 95.3 fL (76.7-100.5); MEAN PLATELET VOLUME 9.2 fL (7.1-12.4); MONOCYTES ABSOLUTE AUTO 0.4 x10-3/uL (0.3-1.0); MONOCYTES PERCENT AUTO 6.4 % (4.4-15.7); NEUTROPHILS ABSOLUTE AUTO 4.7 x10-3/uL (1.5-6.3); NEUTROPHILS PERCENT AUTO 77.1 % (30.8-76.2); PLATELET COUNT,PLT 130 x10(3)uL (151-488); RED CELL DISTRIBUTION WIDTH 13.1 % (12.3-16.5)
[2024-01-09 07:21] LABS: BLOOD UREA NITROGEN,BUN 14 mg/dL (7-18); CALCIUM 9.8 mg/dL (8.6-10.2); CARBON DIOXIDE,CO2 30 mmol/L (21-32); CHLORIDE,CL 107 mmol/L (100-110); ESTIMATED GFR 54 mL/min (>60); GLUCOSE RANDOM 96 mg/dL (80-116); POTASSIUM,K 4.2 mmol/L (3.5-5.3); SODIUM,NA 142 mmol/L (135-145)
[2024-01-09 07:34] VITALS: BP 140/56; PULSE 57
== END 2024-01-09 09:30 | disposition still patient (30) ==
LOC: FB.ED 07:00
DX: S09.90XA Unspecified injury of head, initial encounter (principal); I48.91 Unspecified atrial fibrillation; I10 Essential (primary) hypertension; E78.00 Pure hypercholesterolemia, unspecified; E66.9 Obesity, unspecified; Z90.49 Acquired absence of other specified parts of digestive tract; Z86.73 Personal history of transient ischemic attack (TIA), and cerebral infarction without residual deficits; Z79.01 Long term (current) use of anticoagulants; Z79.899 Other long term (current) drug therapy; Z68.24 Body mass index [BMI] 24.0-24.9, adult; W06.XXXA Fall from bed, initial encounter; Y92.129 Unspecified place in nursing home as the place of occurrence of the external cause
CPT/HCPCS: 36415; 70450; 72125; 80048; 84484; 85025; 93005; 93010; 99284

== ENCOUNTER 2024-03-17 08:56 | Emergency (ER) | payer MEDICARE, BC ==
[2024-03-17 09:40] LABS: HEMATOCRIT 40.1 % (34.2-48.2); HEMOGLOBIN 13.6 g/dL (11.4-15.5); MEAN CORPUSCULAR HEMOGLOBIN 32.3 pg (23.9-33.9); MEAN CORPUSCULAR HGB CONC 33.9 g/dL (31.9-34.8); MEAN CORPUSCULAR VOLUME 95.5 fL (76.7-100.5); MEAN PLATELET VOLUME 9.2 fL (7.1-12.4); PLATELET COUNT,PLT 144 x10(3)uL (151-488); RED CELL DISTRIBUTION WIDTH 13.8 % (12.3-16.5); WHITE BLOOD CELL COUNT,WBC 10.1 x10-3/uL (3.0-10.3)
[2024-03-17 09:49] LABS: BLOOD UREA NITROGEN,BUN 13 mg/dL (7-18); CALCIUM 10.2 mg/dL (8.6-10.2); CARBON DIOXIDE,CO2 31 mmol/L (21-32); CHLORIDE,CL 106 mmol/L (100-110); EST CRCL DRUG DOSING (CG) 27.93 mL/min; ESTIMATED GFR 54 mL/min (>60); GLUCOSE RANDOM 98 mg/dL (80-116); POTASSIUM,K 3.8 mmol/L (3.5-5.3); SODIUM,NA 142 mmol/L (135-145)
[2024-03-17 09:55] LABS: ALANINE AMINOTRANSFERASE,ALT 19 U/L (12-36); ALBUMIN 3.4 g/dL (3.2-4.6); ALKALINE PHOSPHATASE 104 IU/L (56-112); ASPARTATE AMNIOTRANSFERASE,AST 24 IU/L (5-25); BILIRUBIN TOTAL 0.7 mg/dL (0.1-1.3); PROTEIN TOTAL,TP 6.8 g/dL (6.0-8.0)
[2024-03-17 10:21] LABS: BAND PERCENT MAN 2 % (0-6); EOSINOPHILS PERCENT MAN 1 % (0-5); LYMPHOCYTES PERCENT MAN 9 % (13-37); MONOCYTES PERCENT MAN 2 % (4-12); SEG NEUTROPHILS PERCENT MAN 86 % (46-82)
[2024-03-17 10:38] LABS: BILIRUBIN,URINE NEGATIVE (NEGATIVE); GLUCOSE,URINE NORMAL (NORMAL); KETONES,URINE NEGATIVE (NEGATIVE); LEUKOCYTE ESTERASE,URINE LARGE (NEGATIVE); NITRITE,URINE NEGATIVE (NEGATIVE); OCCULT BLOOD,URINE MODERATE (NEGATIVE); PROTEIN,URINE NEGATIVE (NEGATIVE); UROBILINOGEN,URINE NORMAL (NEGATIVE)
[2024-03-17 10:39] LABS: APPEARANCE,URINE CLOUDY (CLEAR); COLOR,URINE YELLOW (YELLOW)
[2024-03-17 10:44] LABS: BACTERIA,URINE MODERATE (NS); EPITHELIAL CELLS,URINE FEW; WBC,URINE >100 (0-5)
[2024-03-17 11:38] VITALS: BP 150/50; PULSE 55
== END 2024-03-17 11:00 | disposition home or self-care (01) ==
LOC: FB.ED 08:56
DX: N39.0 Urinary tract infection, site not specified (principal); R53.1 Weakness; I10 Essential (primary) hypertension; E78.00 Pure hypercholesterolemia, unspecified; E66.9 Obesity, unspecified; Z90.49 Acquired absence of other specified parts of digestive tract; Z79.899 Other long term (current) drug therapy; W19.XXXA Unspecified fall, initial encounter
CPT/HCPCS: 36415; 70450; 71045; 73110-RT; 80053; 81001; 85025; 87086; 99284

== ENCOUNTER 2024-09-06 08:00 | Emergency (ER) | payer MEDICARE, BC ==
[2024-09-06] MEDS ORDERED: Sodium Chloride 0.9% 10 ML Syringe FLUSH PRN (08:13)
[2024-09-06 08:23] LABS: BASOPHILS ABSOLUTE AUTO 0.0 x10-3/uL (0.0-0.1); BASOPHILS PERCENT AUTO 0.4 % (0.2-1.5); EOSINOPHILS ABSOLUTE AUTO 0.0 x10-3/uL (0.0-0.8); EOSINOPHILS PERCENT AUTO 0.8 % (0.6-8.1); LYMPHOCYTES ABSOLUTE AUTO 0.9 x10-3/uL (1.0-4.4); LYMPHOCYTES PERCENT AUTO 14.3 % (18.4-52.1); MEAN PLATELET VOLUME 9.9 fL (7.1-12.4); MONOCYTES ABSOLUTE AUTO 0.5 x10-3/uL (0.3-1.0); MONOCYTES PERCENT AUTO 7.5 % (4.4-15.7); NEUTROPHILS ABSOLUTE AUTO 4.7 x10-3/uL (1.5-6.3); NEUTROPHILS PERCENT AUTO 77.0 % (30.8-76.2); PLATELET COUNT,PLT 123 x10(3)uL (151-488); RED BLOOD CELL COUNT 4.00 x10(6)uL (3.60-5.20); RED CELL DISTRIBUTION WIDTH 14.5 % (12.3-16.5); WHITE BLOOD CELL COUNT,WBC 6.1 x10-3/uL (3.0-10.3)
[2024-09-06 08:27] LABS: BLOOD UREA NITROGEN,BUN 23 mg/dL (7-18); CARBON DIOXIDE,CO2 30 mmol/L (21-32); CHLORIDE,CL 109 mmol/L (100-110); CREATININE 1.0 mg/dL (0.55-1.02); ESTIMATED GFR 54 mL/min (>60); GLUCOSE RANDOM 91 mg/dL (80-116); POTASSIUM,K 3.9 mmol/L (3.5-5.3); SODIUM,NA 144 mmol/L (135-145)
[2024-09-06 08:30] LABS: GLUCOSE,URINE NORMAL (NORMAL); OCCULT BLOOD,URINE NEGATIVE (NEGATIVE)
[2024-09-06 08:31] LABS: APPEARANCE,URINE SLIGHTLY CLOUDY (CLEAR)
[2024-09-06 08:33] LABS: A/G RATIO 1.0; ALANINE AMINOTRANSFERASE,ALT 15 U/L (12-36); ASPARTATE AMNIOTRANSFERASE,AST 21 IU/L (5-25); BILIRUBIN TOTAL 0.6 mg/dL (0.1-1.3); PROTEIN TOTAL,TP 6.0 g/dL (6.0-8.0)
[2024-09-06 08:38] LABS: SQUAMOUS EPITHELIAL CELLS,UR OCCASIONAL (NS,R,O)
== END 2024-09-06 09:25 ==
LOC: FB.ED 08:00
DX: N39.0 Urinary tract infection, site not specified (principal); Z79.01 Long term (current) use of anticoagulants; W19.XXXA Unspecified fall, initial encounter
CPT/HCPCS: 36415; 70450; 71045; 72125; 80053; 81001; 83605; 83735; 84484; 85025; 86140; 87086; 93005; 93010; 99284; 99285

== ENCOUNTER 2024-10-05 12:27 | Emergency (ER) | payer MEDICARE, BC ==
[~2024-10-05 12:27] MED LIST: Sodium Chloride 0.9% 10 ML Syringe FLUSH PRN
[2024-10-05 12:44] LABS: BASOPHILS ABSOLUTE AUTO 0.0 x10-3/uL (0.0-0.1); BASOPHILS PERCENT AUTO 0.5 % (0.2-1.5); EOSINOPHILS ABSOLUTE AUTO 0.0 x10-3/uL (0.0-0.8); EOSINOPHILS PERCENT AUTO 0.7 % (0.6-8.1); LYMPHOCYTES ABSOLUTE AUTO 1.5 x10-3/uL (1.0-4.4); LYMPHOCYTES PERCENT AUTO 30.0 % (18.4-52.1); MEAN PLATELET VOLUME 10.0 fL (7.1-12.4); MONOCYTES ABSOLUTE AUTO 0.4 x10-3/uL (0.3-1.0); MONOCYTES PERCENT AUTO 7.8 % (4.4-15.7); NEUTROPHILS ABSOLUTE AUTO 3.0 x10-3/uL (1.5-6.3); NEUTROPHILS PERCENT AUTO 61.0 % (30.8-76.2); PLATELET COUNT,PLT 115 x10(3)uL (151-488); RED BLOOD CELL COUNT 3.69 x10(6)uL (3.60-5.20); RED CELL DISTRIBUTION WIDTH 13.4 % (12.3-16.5); WHITE BLOOD CELL COUNT,WBC 4.9 x10-3/uL (3.0-10.3)
[2024-10-05 12:58] LABS: BLOOD UREA NITROGEN,BUN 22 mg/dL (7-18); CARBON DIOXIDE,CO2 28 mmol/L (21-32); CHLORIDE,CL 109 mmol/L (100-110); CREATININE 0.8 mg/dL (0.55-1.02); ESTIMATED GFR 71 mL/min (>60); GLUCOSE RANDOM 102 mg/dL (80-116); POTASSIUM,K 4.1 mmol/L (3.5-5.3); SODIUM,NA 144 mmol/L (135-145)
[2024-10-05 13:03] LABS: INR 1.14 (1.00-1.24)
[2024-10-05 13:05] LABS: PTT,PARTIAL THROMBOPLSTIN TIME 27.7 SECONDS (24.4-33.2)
[2024-10-05 13:10] LABS: A/G RATIO 1.0; ALANINE AMINOTRANSFERASE,ALT 20 U/L (12-36); ASPARTATE AMNIOTRANSFERASE,AST 34 IU/L (5-25); BILIRUBIN TOTAL 0.4 mg/dL (0.1-1.3); PROTEIN TOTAL,TP 5.8 g/dL (6.0-8.0)
[2024-10-05 13:45] VITALS: BP 138/49; PULSE 67
== END 2024-10-05 14:41 ==
LOC: FB.ED 12:27
DX: G45.9 Transient cerebral ischemic attack, unspecified (principal); I10 Essential (primary) hypertension; I48.20 Chronic atrial fibrillation, unspecified; Z79.899 Other long term (current) drug therapy
CPT/HCPCS: 70450; 71045; 80053; 84484; 85025; 85610; 85730; 93010; 99285